=== PATIENT | male | born 1980 | race Two or more races ===

== ENCOUNTER 2021-11-02 09:33 | Emergency (ER) | payer SELFPAY ==
[~2021-11-02] VITALS: Ht 170.2 cm; Wt 82.0 kg
[2021-11-02] MEDS ORDERED: IV NORMAL SALINE 1000ML BAG 1,000 ML IV SCH (11:30)
[2021-11-02] MEDS ORDERED: ACETAMINOPHEN 500 MG TABLET PO ONE (11:30)
[2021-11-02 11:57] LABS: BASO % 0 % (0-3); EOS # 0.1 x10^3/uL (0.0-0.7); EOS % 2 % (0-3); HEMATOCRIT 43.2 % (39.0-53.0); HEMOGLOBIN 14.7 g/dL (13.0-17.5); LYMPH # 1.5 x10^3/uL (1.0-4.8); LYMPH % 29 % (24-48); MEAN CORPUSCULAR HEMOGLOBIN 29 pg (25-35); MEAN CORPUSCULAR HGB CONC 34 g/dL (31-37); MEAN CORPUSCULAR VOLUME 85 fL (79-100); MONO # 0.5 x10^3/uL (0.0-1.1); MONO % 10 % (0-9); NEUT % 58 % (31-73); PLATELET COUNT 124 x10^3/uL (140-400); RED CELL DISTRIBUTION WIDTH 13.1 % (11.5-14.5); WHITE BLOOD COUNT 5.1 x10^3/uL (4.0-11.0)
--- NOTE | 2021-11-02 12:04 | RAD ---
XR CHEST 1V History: Reason: soa, chest pain, cough / Spl. Instructions: / History: Comparison: None. Findings: No consolidation or pleural effusion. Normal heart size. No pneumothorax. Impression: 1. No acute cardiopulmonary process. Electronically signed by: Joey Luna DO (11/02/2021 12:02 PM) [id number]
[2021-11-02 12:07] LABS: CALCIUM 8.7 mg/dL (8.5-10.1); GFR 82.8; POTASSIUM 4.3 mmol/L (3.5-5.1)
[2021-11-02 12:14] LABS: MAGNESIUM 2.4 mg/dL (1.8-2.4); TOTAL BILIRUBIN 0.6 mg/dL (0.2-1.0); TOTAL PROTEIN 8.2 g/dL (6.4-8.2)
[2021-11-02] MEDS ORDERED: ALBU2.5V8 INH (12:36)
--- NOTE | 2021-11-02 12:38 | PHYS DOC ---
Past Medical History Past Surgical History: No Surgical History General Adult EDM: Chief Complaint: COUGH HPI: HPI: Patient is a 41 year old male who presents with 5 days of cough, shortness of breath with exertion, chest pain with movement and headache and nausea. He rates his overall pain a 6 out of 10. He is not vaccinated for Covid. He denies any past medical history and states he has not been taking any medications daily nor is he prescribed any medications daily. Review of Systems: Review of Systems: Constitutional: Denies fever or chills. [] Eyes: Denies change in visual acuity. [] HENT: Denies nasal congestion or sore throat. [] Respiratory: Denies cough or shortness of breath. [] Cardiovascular: Denies chest pain or edema. [] GI: Denies abdominal pain, nausea, vomiting, bloody stools or diarrhea. [] : Denies dysuria. [] Musculoskeletal: Denies back pain or joint pain. [] Integument: Denies rash. [] Neurologic: Denies headache, focal weakness or sensory changes. [] Endocrine: Denies polyuria or polydipsia. [] Lymphatic: Denies swollen glands. [] Psychiatric: Denies depression or anxiety. [] Heart Score: C/O Chest Pain: Yes HEART Score for Chest Pain: HEART Score for Chest Pain Response (Comments) Value History Slighlty/Non-Suspicious 0 ECG Normal 0 Age < 45 0 Risk Factors 1 or 2 Risk Factors 1 Troponin < Normal Limit 0 Total 1 Risk Factors: Risk Factors: DM, Current or recent (<one month) smoker, HTN, HLP, family history of CAD, obesity. Risk Scores: Score 0 - 3: 2.5% MACE over next 6 weeks - Discharge Home Score 4 - 6: 20.3% MACE over next 6 weeks - Admit for Clinical Observation Score 7 - 10: 72.7% MACE over next 6 weeks - Early Invasive Strategies Current Medications: Current Medications Medications (Trade) Dose Ordered Sig/Shari Start Time Stop Time Status Last Admin Dose Admin Acetaminophen (Tylenol) 1,000 mg 1X ONCE 11/02/21 11:30 11/02/21 11:50 DC 11/02/21 11:30 1,000 MG Sodium Chloride 1,000 ml @ 1,000 mls/hr Q1H 11/02/21 11:30 11/02/21 12:29 DC 11/02/21 11:30 1,000 MLS/HR Allergies: Allergies: Allergies Coded Allergies Type Severity Reaction Last Updated Verified No Known Drug Allergies 11/02/21 No Physical Exam: PE: Constitutional: Well developed, well nourished, no acute distress, non-toxic appearance. [] HENT: Normocephalic, atraumatic, bilateral external ears normal, oropharynx moist, no oral exudates, nose normal. [] Eyes: PERRLA, EOMI, conjunctiva normal, no discharge. [] Neck: Normal range of motion, no tenderness, supple, no stridor. [] Cardiovascular:Heart rate regular rhythm, no murmur [] Lungs & Thorax: Bilateral breath sounds clear to auscultation [] Abdomen: Bowel sounds normal, soft, no tenderness, no masses, no pulsatile masses. [] Skin: Warm, dry, no erythema, no rash. [] Back: No tenderness, no CVA tenderness. [] Extremities: No tenderness, no cyanosis, no clubbing, ROM intact, no edema. [] Neurologic: Alert and oriented X 3, normal motor function, normal sensory function, no focal deficits noted. [] Psychologic: Affect normal, judgement normal, mood normal. [] Current Patient Data: Labs: Laboratory Tests Test 11/02/21 11:43 White Blood Count 5.1 x10^3/uL (4.0-11.0) Red Blood Count 5.10 x10^6/uL (4.30-5.70) Hemoglobin 14.7 g/dL (13.0-17.5) Hematocrit 43.2 % (39.0-53.0) Mean Corpuscular Volume 85 fL (79-100) Mean Corpuscular Hemoglobin 29 pg (25-35) Mean Corpuscular Hemoglobin Concent 34 g/dL (31-37) Red Cell Distribution Width 13.1 % (11.5-14.5) Platelet Count 124 x10^3/uL (140-400) L Neutrophils (%) (Auto) 58 % (31-73) Lymphocytes (%) (Auto) 29 % (24-48) Monocytes (%) (Auto) 10 % (0-9) H Eosinophils (%) (Auto) 2 % (0-3) Basophils (%) (Auto) 0 % (0-3) Neutrophils # (Auto) 3.0 x10^3/uL (1.8-7.7) Lymphocytes # (Auto) 1.5 x10^3/uL (1.0-4.8) Monocytes # (Auto) 0.5 x10^3/uL (0.0-1.1) Eosinophils # (Auto) 0.1 x10^3/uL (0.0-0.7) Basophils # (Auto) 0.0 x10^3/uL (0.0-0.2) Sodium Level 142 mmol/L (136-145) Potassium Level 4.3 mmol/L (3.5-5.1) Chloride Level 104 mmol/L (98-107) Carbon Dioxide Level 25 mmol/L (21-32) Anion Gap 13 (6-14) Blood Urea Nitrogen 15 mg/dL (8-26) Creatinine 1.0 mg/dL (0.7-1.3) Estimated GFR (Cockcroft-Gault) 82.8 BUN/Creatinine Ratio 15 (6-20) Glucose Level 95 mg/dL (70-99) Calcium Level 8.7 mg/dL (8.5-10.1) Magnesium Level 2.4 mg/dL (1.8-2.4) Total Bilirubin 0.6 mg/dL (0.2-1.0) Aspartate Amino Transferase (AST) 32 U/L (15-37) Alanine Aminotransferase (ALT) 45 U/L (16-63) Alkaline Phosphatase 66 U/L (46-116) Troponin I High Sensitivity 31 ng/L (4-75) CB-Eec-J-Type Natriuretic Peptide 8 pg/mL (0-124) Total Protein 8.2 g/dL (6.4-8.2) Albumin 4.0 g/dL (3.4-5.0) Albumin/Globulin Ratio 1.0 (1.0-1.7) Lipase 124 U/L (73-393) SARS-CoV-2 Antigen (Rapid) Positive (NEGATIVE) *A Laboratory Tests 11/02/21 11:43 Laboratory Tests 11/02/21 11:43 Vital Signs: Vital Signs Date Time Temp Pulse Resp B/P (MAP) Pulse Ox O2 Delivery O2 Flow Rate FiO2 11/02/21 11:45 98.4 71 15 134/87 (103) 100 Room Air 98.4 EKG: EK and read by Dr. Marcus is sinus rhythm and no STEMI Radiology/Procedures: Radiology/Procedures: [] Impression: [facility] [address] [place] [address] IMAGING REPORT Signed PATIENT: ANAND COLLAZOACCOUNT: [id number] : 1980 LOCATION: ER AGE: 41 SEX: M EXAM STATUS: REG ER ORD. PHYSICIAN: LAURIE SALTER APRN REASON: soa, chest pain, cough PROCEDURE: PORTABLE CHEST 1V XR CHEST 1V History: Reason: soa, chest pain, cough / Spl. Instructions: / History: Comparison: None. Findings: No consolidation or pleural effusion. Normal heart size. No pneumothorax. Impression: 1. No acute cardiopulmonary process. Electronically signed by: Joey Luna DO (11/02/2021 12:02 PM) [id number] DICTATED and SIGNED BY: JOEY LUNA DO DATE: 11/02/21 [id number] 0 Course & Med Decision Making: Course & Med Decision Making Pertinent Labs and Imaging studies reviewed. (See chart for details) COVID-19 CRITERIA: The patient was evaluated during the global COVID-19 pandemic, and that diagnosis was suspected/considered upon their initial presentation. Their evaluation, treatment and testing was consistent with current guidelines for patients who present with complaints or symptoms that may be related to COVID-19. See HPI. Alert and oriented x4. Ambulatory steady gait. Skin pink warm and dry. Vital signs are within normal limits. Abdomen soft and nontender. Lungs are clear in upper lobes but diminished in lower lobes. Blood work unremarkable. Patient is satting 100% on room air. Patient is Covid positive. Chest x-ray shows no infection. 2 troponins are negative. Patient is stable and discharged home. [] Dragon Disclaimer: Dragon Disclaimer: This electronic medical record was generated, in whole or in part, using a voice recognition dictation system. COVID-19 Patient Risks: Age 65 or older: No Sign of co-morbidity: Yes Exp to person + for COVID: Yes Exp to PUI: Yes Travel from affected area: No Lower respiratory symptoms: Yes Fever: Yes Other: No PPE Use: Full PPE with N95 mask or PAPR: Yes Departure Departure Impression: Primary Impression: COVID-19 Disposition: HOME / SELF CARE / HOMELESS Condition: STABLE Referrals: NO PCP (PCP) Patient Instructions: Cough, Adult, Fever, Adult Additional Instructions: Follow-up with your primary care provider. Go to a [facility] or [facility] pharmacy and buy a finger oxygen probe and make sure that your oxygenation stays above 90%. If you begin having severe shortness of breath, chest pain or cannot keep down fluids return to the emergency room. Definicin Se le realiz la prueba de deteccin del COVID-19 o se le diagnostic dicha enfermedad. Es wilfred infeccin ocasionada por un nuevo tipo de coronavirus. En la mayora de los casos, el COVID-19 provoca sntomas similares a los del resfriado. En algunas personas, puede ocasionar sntomas ms graves, tigre problemas respiratorios. No existe un tratamiento para el virus COVID-19. El cuerpo elimina la infeccin con el tiempo. El cuidado personal ayuda a aliviar el malestar. Pasos que debe seguir 1. Cuidados personales Descanse cuando sea necesario. Los hbitos saludables pueden ayudarlo a sentirse mejor. Algunas medidas para lograr cambios incluyen lo siguiente: - Elija alimentos saludables, tigre frutas y verduras. Alma abundante cantidad de agua jerel todo el da. - Duerma rose por la noche. - Si fuma, intente no hacerlo. [place] ayudar a mejorar la respiracin. - Evite el alcohol. 2. Mantenga sanos a los dems El virus puede contagiarse a otras personas. Cada vez que estornuda o tose, se liberan gotitas. Las gotitas pueden entrar en la boca, la nariz o los ojos de las personas que se encuentran cerca de usted y ocasionar la infeccin. Para reducir las probabilidades de contagiar el virus COVID-19 a otros, tenga en cuenta lo siguiente: - Qudese en casa el tiempo que el mdico se lo indique. Es posible que deba quedarse en casa hasta que la enfermedad desaparezca. Salga nicamente para recibir atencin mdica o en farrah de urgencia. - Evite las reas pblicas, los eventos o el transporte pblico. No reanude las actividades laborales o escolares hasta que el mdico lo autorice. - Llame previamente si necesita asistir a un centro mdico. Avise que es posible que haya contrado COVID-19. [place] ayudar a que le indiquen adonde debe dirigirse. David pueden pedirle que use wilfred mscara facial cuando vaya al consultorio. Si llama a los servicios de asistencia mdica de urgencias, avseles que es posible que haya contrado COVID-19. Mientras est en casa: - Evite el contacto directo con otras personas. Mantngase a wilfred distancia aproximada de 2 metros. Si es posible, pasen la mayor parte del tiempo en hallman separadas. - Use wilfred mscara facial si estar en contacto directo con otras personas, por ejemplo, si compartir wilfred habitacin o un vehculo. - Pida a alguien que limpie las superficies comunes de la casa. Limpie picaportes, mesadas y lavamanos con limpiadores domsticos todos los noriega. - Al toser o estornudar, cbrase con un pauelo de papel. Despus de usarlo, deschelo de inmediato. Si no tiene un pauelo de papel, tosa o estornude en el pliegue del codo. - Lvese las lia con frecuencia. Lvese las lia despus de estornudar o toser. Lvese con agua y jabn jerel, al menos, 20 segundos. Si no dispone de agua y jabn, use un limpiador de lia a base de alcohol. - No cocine para otros. Evite compartir objetos personales, tigre tenedores, cucharas o cepillos de dientes. - Mientras est enfermo, evite el contacto directo con las mascotas. No hay indicios de si el virus se transmite a las mascotas. Esta es wilfred medida de seguridad que debe tenerse en cuenta hasta que se sepa ms acerca de sheba virus. El aislamiento puede ser frustrante. La interaccin social puede ayudar. Mantngase en contacto con amigos y familiares por telfono u otros medios tecnolgicos. Puede interactuar con otras personas en el hogar, dread mantenga wilfred distancia cantu de aproximadamente 2 metros. Seguimiento Las pruebas para confirmar la presencia del COVID-19 pueden demorar algunos noriega. Es posible que deba seguir los pasos mencionados anteriormente hasta que estn los resultados de las pruebas. Lo llamarn del consultorio mdico para saber si govea habido algn cambio en henry nohemi. [place] le avisarn cuando pueda volver a estar cerca de otras personas. Problemas a los que debe estar atento Comunquese con el mdico si no se recupera segn lo previsto o si tiene problemas tigre los siguientes: - Dificultad para respirar - Dolor de pecho - Empeoramiento de los sntomas Si niki que tiene wilfred urgencia, llame a los servicios de asistencia mdica de u rgencias de inmediato. As taken from [facility] Albuterol Sulfate (PROAIR HFA INHALER) 8.5 Gm Hfa.aer.ad 1-2 PUFF INH PRN Q6HRS PRN for SHORTNESS OF BREATH, #1 EACH 0 Refills Prov: LAURIE SALTER GROUNDS MANAGER 11/02/21 LAURIE SALTER GROUNDS MANAGER Nov 02, 2021 12:38
[2021-11-02 15:47] VITALS: BP 133/75
--- NOTE | 2021-11-03 04:36 | EKG ---
[facility] [address] [place] [address] Test Date: 2021-11-02 Test Time: 12:21:31 Pat Name: ANAND COLLAZO Department: Room: Gender: M Senior Planner: : 1980 Requested By: LAURIE SALTER Order Number: [id number] Reading MD: Kodi Reardon MD Measurements Intervals [place] Rate: 70 P: 33 OR: 196 QRS: 17 QRSD: 92 T: 43 QT: 368 QTc: 400 Interpretive Statements SINUS RHYTHM Electronically Signed On 11-04-2021 20:46:23 NURSE ADVISOR by Kodi Reardon MD
--- NOTE | 2021-11-06 23:03 | EKG ---
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
== END 2021-11-02 15:48 | disposition home or self-care (01) ==
LOC: ER 09:33
DX: U07.1 COVID-19 (principal)
CPT/HCPCS: 36415; 71045; 80053; 83690; 83735; 83880; 84484; 85025; 87426; 93005; 96360; 96361; 99285; J7030

== ENCOUNTER 2021-11-05 12:29 | Emergency (ER) | payer SELFPAY ==
[~2021-11-05 12:29] MED LIST: ALBU2.5V8 INH
[2021-11-06] MEDS ORDERED: BENZ200C47 PO (10:08)
[2021-11-06] MEDS ORDERED: ONDA4TAB7 PO (10:08)
== END 2021-11-05 13:00 | disposition left against medical advice (07) ==
LOC: ER 12:29
DX: U07.1 COVID-19 (principal); Z53.21 Procedure and treatment not carried out due to patient leaving prior to being seen by health care provider

== ENCOUNTER 2021-11-06 07:03 | Emergency (ER) | payer SELFPAY ==
[~2021-11-06] VITALS: Ht 172.7 cm; Wt 109.1 kg
--- NOTE | 2021-11-06 07:25 | PHYS DOC ---
Past Medical History Past Surgical History: No Surgical History General Adult EDM: Chief Complaint: SHORTNESS OF BREATH HPI: HPI: Patient is a 41 year old male who presents with shortness of breath. He reports chest pain with coughing. He reports having a continued dry cough. He was seen here 4 days ago was diagnosed with Covid. He has had symptoms total for about 6 days. He has not had a fever in the last 24 hours. He denies hemoptysis. He denies vomiting but does report nausea. Denies constipation or diarrhea. He denies abdominal pain. He reports slightly decreased urination. He reports having no appetite with loss of sense of taste and smell. He is trying to drink fluids. He reports diffuse body aches. He is not vaccinated against Covid. He reports that he did not get vaccinated because he did not feel like it. He denies recent travel history. He denies recent surgeries or hospitalization. His room air oxygen saturation is 100% here today. Review of Systems: Review of Systems: Constitutional: Reports chills and myalgias and fatigue. Denies objective fever. Eyes: Denies change in visual acuity. [] HENT: Reports nasal congestion. Denies sore throat. Respiratory: Reports cough or shortness of breath. Denies hemoptysis or sputum production Cardiovascular: Reports chest pain with coughing. No edema. No syncope. GI: Denies abdominal pain. Reports nausea without vomiting. Denies bowel habit changes. : Denies dysuria. [] Musculoskeletal: Orts diffuse myalgias and diffuse back pain. No joint pain, redness or swelling. Integument: Denies rash. [] Neurologic: Reports mild headache. Denies focal weakness or numbness or tingling. Denies syncope, dizziness, vertigo symptoms. Endocrine: Denies polyuria or polydipsia. [] Lymphatic: Denies swollen glands. [] Psychiatric: Denies depression or anxiety. [] Heart Score: C/O Chest Pain: Yes HEART Score for Chest Pain: HEART Score for Chest Pain Response (Comments) Value History Slighlty/Non-Suspicious 0 ECG Nonspecific Repolarizatio 1 Age < 45 0 Risk Factors No Risk Factors 0 Troponin < Normal Limit 0 Total 1 Risk Factors: Risk Factors: DM, Current or recent (<one month) smoker, HTN, HLP, family history of CAD, obesity. Risk Scores: Score 0 - 3: 2.5% MACE over next 6 weeks - Discharge Home Score 4 - 6: 20.3% MACE over next 6 weeks - Admit for Clinical Observation Score 7 - 10: 72.7% MACE over next 6 weeks - Early Invasive Strategies Allergies: Allergies: Allergies Coded Allergies Type Severity Reaction Last Updated Verified No Known Drug Allergies 11/02/21 No Physical Exam: PE: Constitutional: Well developed, well nourished, no acute distress, non-toxic appearance. [] HENT: Normocephalic, atraumatic, oropharynx is patent and clear, mucous membranes are slightly tacky. No exudate or erythema of the oropharynx or oral cavity. Eyes: Clear are clear, anicteric, conjunctive are unremarkable Neck: Normal range of motion, no tenderness, supple, no stridor. Trachea midline. No meningismus. Cardiovascular:Heart rate regular rhythm, no murmur, +2 radial and posterior tibial pulses bilaterally. Lungs & Thorax: Lungs are clear to auscultation bilaterally without, rales, rhonchi or wheezes. No stridor. No tachypnea. Equal chest rise. Speaks in full and clear sentences, no evidence of distress. Abdomen: Soft, nondistended, nontender to palpation. No palpable mass organomegaly. Skin: Warm, dry, no erythema, no rash. [] Back: No tenderness, no CVA tenderness. [] Extremities: No tenderness, no cyanosis, no clubbing, ROM intact, no edema. Calf tenderness. Neurologic: Alert and oriented X 3, normal motor function, normal sensory function, no focal deficits noted. [] Psychologic: He is slightly anxious, but he is cooperative. [] EKG: EKG: EKG is interpreted at 0817 Rhythm is sinus Rate is 87 bpm [place] is left No STEMI Radiology/Procedures: Radiology/Procedures: IMAGING REPORT Signed PATIENT: ANAND COLLAZOACCOUNT: [id number] : 1980 LOCATION: ER AGE: 41 SEX: M EXAM STATUS: REG ER ORD. PHYSICIAN: YADI HARRISON DO REASON: cough, dyspnea PROCEDURE: PORTABLE CHEST 1V XR CHEST 1V INDICATION: cough, dyspnea . COMPARISON STUDY: 11/02/2021. FINDINGS: Lungs: Low lung volume. Mild bibasilar heterogeneous opacities. The tracheobronchial tree and hilar structures are normal. Pleura: No pleural effusion or pneumothorax. Heart and Mediastinum: The cardiomediastinal silhouette is normal. The great ve ssels of the thorax are normal. Bones and Soft Tissues: The bones and soft tissues are within normal limits. IMPRESSION: Low lung volume with mild bibasilar opacities, which could represent subsegmental atelectasis or potentially an infectious/inflammatory process. Electronically signed by: Cici Garcia MD (11/06/2021 7:54 AM) [id number] DICTATED and SIGNED BY: CICI GARCIA MD DATE: 11/06/21 [id number] 0 Course & Med Decision Making: Course & Med Decision Making Pertinent Labs and Imaging studies reviewed. (See chart for details) I discussed the findings, differential diagnosis and plan of care with the patient. He is hemodynamically stable. Manifests no evidence of respiratory distress or hypoxia. Emergency department work-up is unremarkable for any acute life-threatening process. I discussed all of this with the patient. Explained that this is the expected progression of illness with Covid 19 infection. I told him to go home, continue self isolate, he may take [id number] Tylenol and ibuprofen for pain. He is to stay well-hydrated, drink plenty of clear fluids. He is to return for any worsening or life-threatening symptoms, I recommend he obtain a pulse oximeter, to monitor his oxygen saturation at home. No indication for admission at this time. Return precautions are given. He verbalized understanding. [place]aritza Disclaimer: Yaritza Disclaimer: This electronic medical record was generated, in whole or in part, using a voice recognition dictation system. Departure Departure Impression: Primary Impression: Dyspnea Additional Impression: COVID-19 Disposition: 01 HOME / SELF CARE / HOMELESS Condition: STABLE Referrals: NO PCP (PCP) Additional Instructions: Definicin Se le realiz la prueba de deteccin del COVID-19 o se le diagnostic dicha enfermedad. Es wilfred infeccin ocasionada por un nuevo tipo de coronavirus. En la mayora de los casos, el COVID-19 provoca sntomas similares a los del resfriado. En algunas personas, puede ocasionar sntomas ms graves, tigre problemas respiratorios. No existe un tratamiento para el virus COVID-19. El cuerpo elimina la infeccin con el tiempo. El cuidado personal ayuda a aliviar el malestar. Pasos que debe seguir 1. Cuidados personales Descanse cuando sea necesario. Los hbitos saludables pueden ayudarlo a sentirse mejor. Algunas medidas para lograr cambios incluyen lo siguiente: - Elija alimentos saludables, tigre frutas y verduras. Alma abundante cantidad de agua jerel todo el da. - Duerma rose por la noche. - Si fuma, intente no hacerlo. [place] ayudar a mejorar la respiracin. - Evite el alcohol. 2. Mantenga sanos a los dems El virus puede contagiarse a otras personas. Cada vez que estornuda o tose, se liberan gotitas. Las gotitas pueden entrar en la boca, la nariz o los ojos de las personas que se encuentran cerca de usted y ocasionar la infeccin. Para reducir las probabi lidades de contagiar el virus COVID-19 a otros, tenga en cuenta lo siguiente: - Qudese en casa el tiempo que el mdico se lo indique. Es posible que deba quedarse en casa hasta que la enfermedad desaparezca. Salga nicamente para recibir atencin mdica o en farrah de urgencia. - Evite las reas pblicas, los eventos o el transporte pblico. No reanude las actividades laborales o escolares hasta que el mdico lo autorice. - Llame previamente si necesita asistir a un centro mdico. Avise que es posibl e que haya contrado COVID-19. [place] ayudar a que le indiquen adonde debe dirigirse. David pueden pedirle que use wilfred mscara facial cuando vaya al consultorio. Si llama a los servicios de asistencia mdica de urgencias, avseles que es posible que haya contrado COVID-19. Mientras est en casa: - Evite el contacto directo con otras personas. Mantngase a wilfred distancia apr oximada de 2 metros. Si es posible, pasen la mayor parte del tiempo en hallman separadas. - Use wilfred mscara facial si estar en contacto directo con otras personas, por ejemplo, si compartir wilfred habitacin o un vehculo. - Pida a alguien que limpie las superficies comunes de la casa. Limpie picaportes, mesadas y lavamanos con limpiadores domsticos todos los noriega. - Al toser o estornudar, cbrase con un pauelo de papel. Despus de usarlo, deschelo de inmediato. Si no tiene un pauelo de papel, tosa o estornude en el pliegue del codo. - Lvese las lia con frecuencia. Lvese las lia despus de estornudar o toser. Lvese con agua y jabn jerel, al menos, 20 segundos. Si no dispone de agua y jabn, use un limpiador de lia a base de alcohol. - No cocine para otros. Evite compartir objetos personales, tigre tenedores, cucharas o cepillos de dientes. - Mientras est enfermo, evite el contacto directo con las mascotas. No hay indicios de si el virus se transmite a las mascotas. Esta es wilfred medida de seguridad que debe tenerse en cuenta hasta que se sepa ms acerca de sheba virus. El aislamiento puede ser frustrante. La interaccin social puede ayudar. Mantngase en contacto con amigos y familiares por telfono u otros medios tecnolgicos. Puede interactuar con otras personas en el hogar, dread mantenga wilfred distancia cantu de aproximadamente 2 metros. Seguimiento Las pruebas para confirmar la presencia del COVID-19 pueden demorar algunos noriega. Es posible que deba seguir los pasos mencionados anteriormente hasta que estn los resultados de las pruebas. Lo llamarn del consultorio mdico para saber si govea habido algn cambio en henry nohemi. Tambin le avisarn cuando pueda volver a estar cerca de otras personas. Problemas a los que debe estar atento Comunquese con el mdico si no se recupera segn lo previsto o si tiene problemas tigre los siguientes: - Dificultad para respirar - Dolor de pecho - Empeoramiento de los sntomas Si niki que tiene wilfred urgencia, llame a los servicios de asistencia mdica de urgencias de inmediato. As taken from [facility] Benzonatate (BENZONATATE) 200 Mg Capsule 1 CAP PO PRN TID PRN for cough, #20 CAP 0 Refills Prov: CHRISTY,YADI M DO 11/06/21 Ondansetron Hcl (ZOFRAN) 4 Mg Tablet 4 MG PO PRN TID PRN for VOMITING, #20 TAB nausea/vomiting Prov: CHRISTY,YADI M DO 11/06/21 CHRISTY,YADI M DO Nov 06, 2021 07:25
[2021-11-06] MEDS ORDERED: IV NORMAL SALINE 1000ML BAG 1,000 ML IV ONE (07:45)
[2021-11-06] MEDS ORDERED: KETOROLAC 15 MG/ML VIAL. IVP ONE (07:45)
[2021-11-06] MEDS ORDERED: ONDANSETRON PF 4 MG/2 ML VIAL. IVP ONE (07:45)
--- NOTE | 2021-11-06 07:56 | RAD ---
XR CHEST 1V INDICATION: cough, dyspnea . COMPARISON STUDY: 11/02/2021. FINDINGS: Lungs: Low lung volume. Mild bibasilar heterogeneous opacities. The tracheobronchial tree and hilar s tructures are normal. Pleura: No pleural effusion or pneumothorax. Heart and Mediastinum: The cardiomediastinal silhouette is normal. The great vessels of the thorax ar e normal. Bones and Soft Tissues: The bones and soft tissues are within normal limits. IMPRESSION: Low lung volume with mild bibasilar opacities, which could represent subsegmental atelectasis or pote ntially an infectious/inflammatory process. Electronically signed by: Shay Garcia MD (11/06/2021 7:54 AM) [id number]
[2021-11-06 08:00] LABS: BILIRUBIN,URINE NEGATIVE (NEG); CLARITY,URINE CLEAR; COLOR,URINE YELLOW; NITRITE,URINE NEGATIVE (NEG); PH,URINE 7.5 (<5.0-8.0); PROTEIN,URINE NEGATIVE (NEG-TRACE)
[2021-11-06 08:13] LABS: BACTERIA,URINE 0 /HPF (0-FEW); RBC,URINE 0 /HPF (0-2); WBC,URINE 0 /HPF (0-4)
[2021-11-06 08:44] LABS: BASO % 0 % (0-3); EOS % 0 % (0-3); HEMATOCRIT 42.6 % (39.0-53.0); HEMOGLOBIN 14.6 g/dL (13.0-17.5); LYMPH # 0.8 x10^3/uL (1.0-4.8); LYMPH % 13 % (24-48); MEAN CORPUSCULAR HEMOGLOBIN 29 pg (25-35); MEAN CORPUSCULAR HGB CONC 34 g/dL (31-37); MEAN CORPUSCULAR VOLUME 84 fL (79-100); MONO # 0.5 x10^3/uL (0.0-1.1); MONO % 8 % (0-9); NEUT # 4.8 x10^3/uL (1.8-7.7); NEUT % 79 % (31-73); PLATELET COUNT 95 x10^3/uL (140-400); RED CELL DISTRIBUTION WIDTH 13.2 % (11.5-14.5)
[2021-11-06 08:50] LABS: CALCIUM 8.8 mg/dL (8.5-10.1); GFR 82.8; POTASSIUM 3.6 mmol/L (3.5-5.1)
[2021-11-06 08:57] LABS: ALBUMIN 3.8 g/dL (3.4-5.0); ALBUMIN/GLOBULIN RATIO 0.9 (1.0-1.7); TOTAL BILIRUBIN 0.5 mg/dL (0.2-1.0)
[2021-11-06] MEDS ORDERED: ONDA4TAB7 PO (10:08)
[2021-11-06] MEDS ORDERED: BENZ200C47 PO (10:08)
[2021-11-06 10:24] VITALS: BP 138/89
--- NOTE | 2021-11-08 09:25 | EKG ---
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
[2021-11-09] MEDS ORDERED: BENZ200C47 PO (12:27)
[2021-11-09] MEDS ORDERED: LORA-434 PO (12:27)
== END 2021-11-06 10:26 | disposition home or self-care (01) ==
LOC: ER 07:03
DX: U07.1 COVID-19 (principal); R06.02 Shortness of breath
CPT/HCPCS: 36415; 71045; 80053; 81001; 82550; 83880; 84484; 85025; 85379; 93005; 96361; 96374; 96375; 99285; J1885; J2405; J7030

== ENCOUNTER 2021-11-08 11:40 | Inpatient (IN) | payer SELFPAY ==
[~2021-11-08] VITALS: Ht 172.7 cm; Wt 103.0 kg
[~2021-11-08 11:40] MED LIST changes: +BENZ200C47 PO; +ONDA4TAB7 PO
[2021-11-08] MEDS ORDERED: ASPIRIN CHEWABLE 81 MG TABLET. PO ONE (12:45)
--- NOTE | 2021-11-08 13:00 | EKG ---
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
--- NOTE | 2021-11-08 13:02 | EKG ---
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
[2021-11-08 13:12] LABS: BASO % 0 % (0-3); EOS % 0 % (0-3); HEMATOCRIT 42.9 % (39.0-53.0); LYMPH # 1.4 x10^3/uL (1.0-4.8); LYMPH % 15 % (24-48); MEAN CORPUSCULAR HEMOGLOBIN 29 pg (25-35); MEAN CORPUSCULAR HGB CONC 35 g/dL (31-37); MEAN CORPUSCULAR VOLUME 82 fL (79-100); MONO # 0.7 x10^3/uL (0.0-1.1); MONO % 7 % (0-9); NEUT # 7.1 x10^3/uL (1.8-7.7); NEUT % 77 % (31-73); PLATELET COUNT 122 x10^3/uL (140-400); RED BLOOD COUNT 5.23 x10^6/uL (4.30-5.70); RED CELL DISTRIBUTION WIDTH 13.3 % (11.5-14.5); WHITE BLOOD COUNT 9.2 x10^3/uL (4.0-11.0)
[2021-11-08] MEDS ORDERED: CONTRAST GIVEN. MC PRN (13:15)
[2021-11-08] MEDS ORDERED: IOHEXOL 350 MG/ML 100 ML VIAL. IV ONE (13:15)
[2021-11-08 13:19] LABS: CALCIUM 9.1 mg/dL (8.5-10.1); CREATININE 1.1 mg/dL (0.7-1.3); GFR 74.1; POTASSIUM 4.1 mmol/L (3.5-5.1)
[2021-11-08 13:29] LABS: BASE EXCESS ABG -3 mmol/L (-3-3); HCO3 ABG 15 mmol/L (21-28); PO2 ABG 101 mmHg (75-108); SAT O2 ABG 98 % (92-99)
[2021-11-08 13:37] LABS: ALBUMIN 3.9 g/dL (3.4-5.0); ALBUMIN/GLOBULIN RATIO 0.8 (1.0-1.7); TOTAL PROTEIN 8.5 g/dL (6.4-8.2)
--- NOTE | 2021-11-08 13:51 | RAD ---
Examination: CT angiographic chest with IV contrast HISTORY: History of shortness of breath, tachycardia, Covid positive COMPARISON: None available Technique: Axial CT angiographic images of chest were performed with IV contrast. Coronal and sagitta l 3-D MIP reformats are performed Exposure: One or more of the following individualized dose reduction techniques were utilized for thi s examination: 1. Automated exposure control 2. Adjustment of the mA and/or kV according to patient size 3. Use of iterative reconstruction technique FINDINGS: The central airways are patent. The heart size grossly appears unremarkable. The caliber of the aorta grossly appears unremarkable. Examination is somewhat limited due to minimal contrast within the pul monary artery and its branches however grossly no evidence of large filling defect identified in the main pulmonary arteries the visualized right and left main pulmonary arteries. The evaluation of dist al branches of pulmonary arteries is limited. There are faint multiple patchy scattered groundglass a irspace opacities identified in the bilateral lungs. Diffuse decreased attenuation noted in the liver likely steatosis. The spleen, adrenals grossly appears unremarkable Mild degenerative changes thoracic spine IMPRESSION: 1. No evidence of large filling defect identified in the main pulmonary arteries the visualized righ t and left main pulmonary arteries. The evaluation of pulmonary arteries is however limited due to mi nimal contrast within the pulmonary arteries. 2. Faint multiple patchy scattered groundglass airspace opacities identified in the bilateral lungs likely viral or covid pneumonia. Follow-up to resolution. 3. Hepatic steatosis. Electronically signed by: Viral Mejia MD (11/08/2021 1:49 PM) [id number]
[2021-11-08 13:56] LABS: FIO2 ABG RA; PCO2 ABG < 15 mmHg (35-46)
--- NOTE | 2021-11-08 14:25 | PHYS DOC ---
Past Medical History Past Surgical History: No Surgical History Smoking Status: Current Some Day Smoker Alcohol Use: None General Adult EDM: Chief Complaint: SHORTNESS OF BREATH HPI: HPI: Patient is a 41 year old Indonesian speaking male who presents with known COVID-19 diagnosis and 3-day history of chest pain. Patient rates his pain 10/10, nonradiating and unchanged since onset. He reports associated shortness of breath, nausea, diarrhea and anxiety. Patient states he was diagnosed with Covid 9 days ago. He was originally prescribed an inhaler, but has since used it. Patient reports he has taken aspirin once per day daily for the past week. He is unsure of the dosage. He denies palpitations, sputum production, abdominal pain, constipation. Review of Systems: Review of Systems: Constitutional: Denies fever or chills. Eyes: Denies change in visual acuity. HENT: Denies nasal congestion or sore throat. Respiratory: See HPI Cardiovascular: See HPI GI: See HPI : Denies dysuria or hematuria. Musculoskeletal: Denies back pain or joint pain. Integument: Denies rash or other skin lesions. Neurologic: Denies headache, focal weakness or sensory changes. Psychiatric: See HPI Heart Score: C/O Chest Pain: No Current Medications: Current Medications Medications (Trade) Dose Ordered Sig/Shari Start Time Stop Time Status Last Admin Dose Admin Aspirin (Aspirin Chewable) 324 mg 1X ONCE 11/08/21 12:45 11/08/21 12:50 DC 11/08/21 12:45 324 MG Info (CONTRAST GIVEN -- Rx MONITORING) 1 each PRN DAILY PRN 11/08/21 13:15 11/10/21 13:14 Iohexol (Omnipaque 350 Mg/ml) 100 ml 1X ONCE 11/08/21 13:15 11/08/21 13:16 DC Lorazepam (Ativan Inj) 1 mg 1X ONCE 11/08/21 13:00 11/08/21 13:02 DC 11/08/21 13:24 1 MG Allergies: Allergies: Allergies Coded Allergies Type Severity Reaction Last Updated Verified No Known Drug Allergies 11/08/21 No Physical Exam: PE: Constitutional: Obese, extremely anxious appearing, rapid and shallow breathing. HENT: Normocephalic, atraumatic, bilateral external ears normal, oropharynx moist, no oral exudates, nose without obvious deformity or discharge. Eyes: PERRLA, EOMI, conjunctiva normal, no discharge. Neck: Normal range of motion, no tenderness, supple, no stridor. Cardiovascular: Heart rate regular rhythm, no murmur. Lungs & Thorax: Thoracic expansion is minimal secondary to shallow and rapid breath pattern. Bilateral breath sounds clear to auscultation slightly diminished in posterior bases bilaterally. Abdomen: Bowel sounds normal, soft, no tenderness, no masses, no pulsatile masses. Skin: Warm, no erythema, no rash. Extremities: No tenderness, no cyanosis, no clubbing, ROM intact, no edema. Neurologic: Alert and oriented x4, no focal deficits noted. Psychologic: Affect anxious, fair judgment. Current Patient Data: Labs: Laboratory Tests Test 11/08/21 12:40 11/08/21 12:43 11/08/21 13:23 White Blood Count 9.2 x10^3/uL (4.0-11.0) Red Blood Count 5.23 x10^6/uL (4.30-5.70) Hemoglobin 15.0 g/dL (13.0-17.5) Hematocrit 42.9 % (39.0-53.0) Mean Corpuscular Volume 82 fL (79-100) Mean Corpuscular Hemoglobin 29 pg (25-35) Mean Corpuscular Hemoglobin Concent 35 g/dL (31-37) Red Cell Distribution Width 13.3 % (11.5-14.5) Platelet Count 122 x10^3/uL (140-400) L Neutrophils (%) (Auto) 77 % (31-73) H Lymphocytes (%) (Auto) 15 % (24-48) L Monocytes (%) (Auto) 7 % (0-9) Eosinophils (%) (Auto) 0 % (0-3) Basophils (%) (Auto) 0 % (0-3) Neutrophils # (Auto) 7.1 x10^3/uL (1.8-7.7) Lymphocytes # (Auto) 1.4 x10^3/uL (1.0-4.8) Monocytes # (Auto) 0.7 x10^3/uL (0.0-1.1) Eosinophils # (Auto) 0.0 x10^3/uL (0.0-0.7) Basophils # (Auto) 0.0 x10^3/uL (0.0-0.2) Sodium Level 140 mmol/L (136-145) Potassium Level 4.1 mmol/L (3.5-5.1) Chloride Level 105 mmol/L (98-107) Carbon Dioxide Level 19 mmol/L (21-32) L Anion Gap 16 (6-14) H Blood Urea Nitrogen 11 mg/dL (8-26) Creatinine 1.1 mg/dL (0.7-1.3) Estimated GFR (Cockcroft-Gault) 74.1 BUN/Creatinine Ratio 10 (6-20) Glucose Level 90 mg/dL (70-99) Calcium Level 9.1 mg/dL (8.5-10.1) Total Bilirubin 1.0 mg/dL (0.2-1.0) Aspartate Amino Transferase (AST) 22 U/L (15-37) Alanine Aminotransferase (ALT) 33 U/L (16-63) Alkaline Phosphatase 72 U/L (46-116) Troponin I High Sensitivity 23 ng/L (4-75) KZ-Wsv-H-Type Natriuretic Peptide 17 pg/mL (0-124) Total Protein 8.5 g/dL (6.4-8.2) H Albumin 3.9 g/dL (3.4-5.0) Albumin/Globulin Ratio 0.8 (1.0-1.7) L Lipase 154 U/L (73-393) O2 Saturation 98 % (92-99) Arterial Blood pH 7.62 (7.35-7.45) *H Arterial Blood pCO2 at Patient Temp < 15 mmHg (35-46) *L Arterial Blood pO2 at Patient Temp 101 mmHg (75-108) Arterial Blood HCO3 15 mmol/L (21-28) L Arterial Blood Base Excess -3 mmol/L (-3-3) FiO2 Ra Glucose (Fingerstick) 82 mg/dL (70-99) Laboratory Tests 11/08/21 12:40 Laboratory Tests 11/08/21 12:40 Vital Signs: Vital Signs Date Time Temp Pulse Resp B/P (MAP) Pulse Ox O2 Delivery O2 Flow Rate FiO2 11/08/21 15:11 56 15 127/87 (100) 98 Room Air 11/08/21 13:28 98 Room Air 11/08/21 13:14 103 15 165/80 (108) 97 Room Air 11/08/21 11:45 98.1 96 38 128/89 (102) 100 Room Air 98.1 EKG: EKG: EKG Interpreted by Dr. Alford at 1255: Regular rate and rhythm 89 bpm with no ectopic beats. No concerning ST-T wave changes. QT 342 ms/QTc 417 ms. Radiology/Procedures: Radiology/Procedures: PROCEDURE: CT ANGIOGRAPHY CHEST Examination: CT angiographic chest with IV contrast HISTORY: History of shortness of breath, tachycardia, Covid positive COMPARISON: None available Technique: Axial CT angiographic images of chest were performed with IV contrast. Coronal and sagittal 3-D MIP reformats are performed Exposure: One or more of the following individualized dose reduction techniques were utilized for this examination: 1. Automated exposure control 2. Adjustment of the mA and/or kV according to patient size 3. Use of iterative reconstruction technique FINDINGS: The central airways are patent. The heart size grossly appears unremarkable. The caliber of the aorta grossly appears unremarkable. Examination is somewhat limited due to minimal contrast within the pulmonary artery and its branches however grossly no evidence of large filling defect identified in the main pulmonary arteries the visualized right and left main pulmonary arteries. The evaluation of distal branches of pulmonary arteries is limited. There are faint multiple patchy scattered groundglass airspace opacities identified in the bilateral lungs. Diffuse decreased attenuation noted in the liver likely steatosis. The spleen, adrenals grossly appears unremarkable Mild degenerative changes thoracic spine IMPRESSION: 1. No evidence of large filling defect identified in the main pulmonary arteries the visualized right and left main pulmonary arteries. The evaluation of pulmonary arteries is however limited due to minimal contrast within the pulmonary arteries. 2. Faint multiple patchy scattered groundglass airspace opacities identified in the bilateral lungs likely viral or covid pneumonia. Follow-up to resolution. 3. Hepatic steatosis. Electronically signed by: Viral Mejia MD (11/08/2021 1:49 PM) [id number] Course & Med Decision Making: Course & Med Decision Making Pertinent Labs and Imaging studies reviewed. (See chart for details) Patient is extremely anxious appearing and obviously tachypneic on exam. Work- up today will include EKG, serial troponin, CT angio chest, lab work, ABG. Patient is ABG consistent with partially compensated respiratory alkalosis that is very concerning. Discussed admission with hospitalist, Dr. Moran, who advises reevaluation of tachypnea as well as salicylate levels. With 1 mg Ativan, patient appears to be more relaxed, however continues to have rapid breathing. Patient will be admitted for dyspnea associated with COVID-19 and respiratory alkalosis. Dragashtyn Disclaimer: Yaritza Disclaimer: This electronic medical record was generated, in whole or in part, using a voice recognition dictation system. Departure Departure Impression: Primary Impression: COVID-19 Additional Impressions: Dyspnea Qualified Codes: R06.09 - Other forms of dyspnea Respiratory alkalosis Disposition: ADMITTED INPATIENT Admitting Physician: SYLVAIN Flores) Condition: GUARDED Referrals: NO PCP (PCP) INDRA HERNANDEZ Nov 08, 2021 14:25
--- NOTE | 2021-11-08 16:03 | PDOC1 ---
History and Physical Date of Admission Date of Admission DATE: 11/08/21 TIME: 16:03 Identification/Chief Complaint Chief Complaint Shortness of breath Source Source: Patient History of Present Illness History of Present Illness Mr Sahni is a 41 year old Nauruan speaking only male with no PMHx who presents to ED with worsening shortness of breath and 3 days of chest discomfort. Pain 10/10 at the worst, but is dull nonradiating and worsening with cough, reproducible. He reports associated shortness of breath, nausea, diarrhea and anxiety. He has had shortness of breath and voluminous diarrhea multiple time per day for the past week. Tested positive for COVID-19 on 11/02/2021 comes in ED very tachypneic. Patient reports he has taken aspirin once per day daily for the past week. He is unsure of the dosage. He denies palpitations, sputum production, abdominal pain or recent travel ABG on room air 7.6 2/101, WBC 9.2, Hb 15, platelets 122, metabolic panel within normal limits, salicylates undetectable, CTPA negative for pulmonary embolism but not fully adequate study bilateral groundglass opacities bilateral lungs. Hepatic steatosis. EKG appears sinus rhythm rate of 89 bpm normal axis and intervals QTc 417 Despite Ativan and respiratory treatments still very tachypneic over 24 breaths per minute. No hypoxia noted Admitted for further care. Past Medical History Cardiovascular: No pertinent hx Past Surgical History Past Surgical History: No pertinent history Family History Family History: Diabetes, High Cholestrol, Hypertension Social History Smoke: 1 pack per day ALCOHOL: rare Drugs: None Current Medications Current Medications Current Medications Aspirin (Aspirin Chewable) 324 mg 1X ONCE PO Last administered on 11/08/21at 12:45; Start 11/08/21 at 12:45; Stop 11/08/21 at 12:50; Status DC Lorazepam (Ativan Inj) 1 mg 1X ONCE IVP Last administered on 11/08/21at 13:24; Start 11/08/21 at 13:00; Stop 11/08/21 at 13:02; Status DC Iohexol (Omnipaque 350 Mg/ml) 100 ml 1X ONCE IV ; Start 11/08/21 at 13:15; Stop 11/08/21 at 13:16; Status DC Info (CONTRAST GIVEN -- Rx MONITORING) 1 each PRN DAILY PRN MC SEE COMMENTS; Start 11/08/21 at 13:15; Stop 11/10/21 at 13:14 Active Scripts Active Benzonatate 200 Mg Capsule 1 Cap PO PRN TID PRN Zofran (Ondansetron Hcl) 4 Mg Tablet 4 Mg PO PRN TID PRN nausea/vomiting Proair Hfa Inhaler (Albuterol Sulfate) 8.5 Gm Hfa.aer.ad 1-2 Puff INH PRN Q6HRS PRN Allergies Allergies: Coded Allergies: No Known Drug Allergies (Unverified , 11/08/21) ROS General: YES: Chills, Fatigue, Malaise, Appetite; No: Night Sweats, Other PSYCHOLOGICAL ROS: YES: Anxiety; No: Behavioral Disorder, Concentration difficultie, Decreased libido, Depres cami, Disorientation, Hallucinations, Hostility, Irritablity, Memory difficulties, Mood Swings, Obsessive thoughts, Physical abuse, Sexual abuse, Sleep disturbances, Suicidal ideation, Other Eyes: No Blurry vision, No Decreased vision, No Double vision, No Dry eyes, No Excessive tearing, No Eye Pain, No Itchy Eyes, No Loss of vision, No Photophobia, No Scotomata, No Uses contacts, No Uses glasses, No Other HEENT: No: Heacaches, Visual Changes, Hearing change, Nasal congestion, Nasal discharge, Oral lesions, Sinus pain, Sore Throat, Epistaxis, Sneezing, Snoring, Tinnitus, Vertigo, Vocal changes, Other ALLERGY AND IMMUNOLOGY: No: Hives, Insect Bite Sensitivity, Itchy/Watery Eyes, Nasal Congestion, Post Nasal Drip, Seasonal Allergies, Other Hematological and Lymphatic: No: Bleeding Problems, Blood Clots, Blood Transfusions, Brusing, Night Sweats, Pallor, Swollen Lymph Nodes, Other ENDOCRINE: No: Breast Changes, Galactorrhea, Hair Pattern Changes, Hot Flashes, Malaise/lethargy, Mood Swings, Palpitations, Polydipsia/polyuria, Skin Changes, Temperature Intolerance, Unexpected Weight Changes, Other Breast: No New/Changing Breast Lumps, No Nipple changes, No Nipple discharge, No Other Respiratory: YES: Cough, Pleuritic Pain, Shortness of breath, SOB with excertion, Tachypnea; No: Hemoptysis, Orthopnea, Sputum Changes, Stridor, Wheezing, Other Cardiovascular: yes Chest Pain; No Palpitations, No Orthopnea, No Paroxysmal Noc. Dyspnea, No Edema, No Lt Headedness, No Other Gastrointestinal: Yes Nausea, Yes Diarrhea; No Vomiting, No Abdominal Pain, No Constipation, No Melena, No Hematochezia, No Other Genitourinary: No Dysuria, No Frequency, No Incontinence, No Hematuria, No Retention, No Discharge, No Urgency, No Pain, No Flank Pain, No Other, No , No , No , No , No , No , No Musculoskeletal: No Gait Disturbance, No Joint Pain, No Joint Stiffness, No Joint Swelling, No Muscle Pain, No Muscular Weakness, No Pain In:, No Swelling In:, No Other Neurological: No Behavorial Changes, No Bowel/Bladder ControlChng, No Confusion, No Dizziness, No Gait Disturbance, No Headaches, No Impaired Coord/balance, No Memory Loss, No Numbness/Tingling, No Seizures, No Speech Problems, No Tremors, No Visual Changes, No Weakness, No Other Skin: No Dry Skin, No Eczema, No Hair Changes, No Lumps, No Mole Changes, No Mottling, No Nail Changes, No Pruritus, No Rash, No Skin Lesion Changes, No Other, No Acne Physical Exam General: Alert, Oriented X3, Cooperative, moderate distress HEENT: Atraumatic, PERRLA, EOMI, Mucous membr. moist/pink Lungs: Clear to auscultation, Normal air movement Heart: S1S2, RRR, no thrills, no rubs, no gallops, no murmurs Abdomen: Normal bowel sounds, Soft, No tenderness, No hepatosplenomegaly, No masses Rectal Exam: not examined Extremities: No clubbing, No cyanosis, No edema, Normal pulses, No tenderness/swelling Skin: No rashes, No breakdown, No significant lesion Neuro: Normal gait, Normal speech, Strength at 5/5 X4 ext, Normal tone, Sensation intact, Cranial nerves 3-12 NL, Reflexes 2+ Psych/Mental Status: Mental status NL, Mood NL Vitals Vitals Vital Signs Date Time Temp Pulse Resp B/P (MAP) Pulse Ox O2 Delivery O2 Flow Rate FiO2 11/08/21 15:11 56 15 127/87 (100) 98 Room Air 11/08/21 11:45 98.1 98.1 Labs Labs Laboratory Tests Test 12/9/21 12:40 11/08/21 12:43 11/08/21 13:23 White Blood Count 9.2 x10^3/uL (4.0-11.0) Red Blood Count 5.23 x10^6/uL (4.30-5.70) Hemoglobin 15.0 g/dL (13.0-17.5) Hematocrit 42.9 % (39.0-53.0) Mean Corpuscular Volume 82 fL (79-100) Mean Corpuscular Hemoglobin 29 pg (25-35) Mean Corpuscular Hemoglobin Concent 35 g/dL (31-37) Red Cell Distribution Width 13.3 % (11.5-14.5) Platelet Count 122 x10^3/uL (140-400) Neutrophils (%) (Auto) 77 % (31-73) Lymphocytes (%) (Auto) 15 % (24-48) Monocytes (%) (Auto) 7 % (0-9) Eosinophils (%) (Auto) 0 % (0-3) Basophils (%) (Auto) 0 % (0-3) Neutrophils # (Auto) 7.1 x10^3/uL (1.8-7.7) Lymphocytes # (Auto) 1.4 x10^3/uL (1.0-4.8) Monocytes # (Auto) 0.7 x10^3/uL (0.0-1.1) Eosinophils # (Auto) 0.0 x10^3/uL (0.0-0.7) Basophils # (Auto) 0.0 x10^3/uL (0.0-0.2) Sodium Level 140 mmol/L (136-145) Potassium Level 4.1 mmol/L (3.5-5.1) Chloride Level 105 mmol/L (98-107) Carbon Dioxide Level 19 mmol/L (21-32) Anion Gap 16 (6-14) Blood Urea Nitrogen 11 mg/dL (8-26) Creatinine 1.1 mg/dL (0.7-1.3) Estimated GFR (Cockcroft-Gault) 74.1 BUN/Creatinine Ratio 10 (6-20) Glucose Level 90 mg/dL (70-99) Calcium Level 9.1 mg/dL (8.5-10.1) Total Bilirubin 1.0 mg/dL (0.2-1.0) Aspartate Amino Transf (AST/SGOT) 22 U/L (15-37) Alanine Aminotransferase (ALT/SGPT) 33 U/L (16-63) Alkaline Phosphatase 72 U/L (46-116) Troponin I High Sensitivity 23 ng/L (4-75) IA-Wji-T-Type Natriuretic Peptide 17 pg/mL (0-124) Total Protein 8.5 g/dL (6.4-8.2) Albumin 3.9 g/dL (3.4-5.0) Albumin/Globulin Ratio 0.8 (1.0-1.7) Lipase 154 U/L (73-393) Salicylates Level 4.0 mg/dL (2.8-20.0) Salicylate Last Dose Date Unknown Salicylate Last Dose Time Unknown O2 Saturation 98 % (92-99) Arterial Blood pH 7.62 (7.35-7.45) Arterial Blood pCO2 at Patient Temp < 15 mmHg (35-46) Arterial Blood pO2 at Patient Temp 101 mmHg (75-108) Arterial Blood HCO3 15 mmol/L (21-28) Arterial Blood Base Excess -3 mmol/L (-3-3) FiO2 Ra Glucose (Fingerstick) 82 mg/dL (70-99) Laboratory Tests Test 11/08/21 12:40 11/08/21 12:43 11/08/21 13:23 White Blood Count 9.2 x10^3/uL (4.0-11.0) Red Blood Count 5.23 x10^6/uL (4.30-5.70) Hemoglobin 15.0 g/dL (13.0-17.5) Hematocrit 42.9 % (39.0-53.0) Mean Corpuscular Volume 82 fL (79-100) Mean Corpuscular Hemoglobin 29 pg (25-35) Mean Corpuscular Hemoglobin Concent 35 g/dL (31-37) Red Cell Distribution Width 13.3 % (11.5-14.5) Platelet Count 122 x10^3/uL (140-400) Neutrophils (%) (Auto) 77 % (31-73) Lymphocytes (%) (Auto) 15 % (24-48) Monocytes (%) (Auto) 7 % (0-9) Eosinophils (%) (Auto) 0 % (0-3) Basophils (%) (Auto) 0 % (0-3) Neutrophils # (Auto) 7.1 x10^3/uL (1.8-7.7) Lymphocytes # (Auto) 1.4 x10^3/uL (1.0-4.8) Monocytes # (Auto) 0.7 x10^3/uL (0.0-1.1) Eosinophils # (Auto) 0.0 x10^3/uL (0.0-0.7) Basophils # (Auto) 0.0 x10^3/uL (0.0-0.2) Sodium Level 140 mmol/L (136-145) Potassium Level 4.1 mmol/L (3.5-5.1) Chloride Level 105 mmol/L (98-107) Carbon Dioxide Level 19 mmol/L (21-32) Anion Gap 16 (6-14) Blood Urea Nitrogen 11 mg/dL (8-26) Creatinine 1.1 mg/dL (0.7-1.3) Estimated GFR (Cockcroft-Gault) 74.1 BUN/Creatinine Ratio 10 (6-20) Glucose Level 90 mg/dL (70-99) Calcium Level 9.1 mg/dL (8.5-10.1) Total Bilirubin 1.0 mg/dL (0.2-1.0) Aspartate Amino Transf (AST/SGOT) 22 U/L (15-37) Alanine Aminotransferase (ALT/SGPT) 33 U/L (16-63) Alkaline Phosphatase 72 U/L (46-116) Troponin I High Sensitivity 23 ng/L (4-75) MM-Tik-U-Type Natriuretic Peptide 17 pg/mL (0-124) Total Protein 8.5 g/dL (6.4-8.2) Albumin 3.9 g/dL (3.4-5.0) Albumin/Globulin Ratio 0.8 (1.0-1.7) Lipase 154 U/L (73-393) Salicylates Level 4.0 mg/dL (2.8-20.0) Salicylate Last Dose Date Unknown Salicylate Last Dose Time Unknown O2 Saturation 98 % (92-99) Arterial Blood pH 7.62 (7.35-7.45) Arterial Blood pCO2 at Patient Temp < 15 mmHg (35-46) Arterial Blood pO2 at Patient Temp 101 mmHg (75-108) Arterial Blood HCO3 15 mmol/L (21-28) Arterial Blood Base Excess -3 mmol/L (-3-3) FiO2 Ra Glucose (Fingerstick) 82 mg/dL (70-99) Images Images CTPA: The central airways are patent. The heart size grossly appears unremarkable. The caliber of the aorta grossly appears unremarkable. Examination is somewhat limited due to minimal contrast within the pulmonary artery and its branches however grossly no evidence of large filling defect identified in the main pulmonary arteries the visualized right and left main pulmonary arteries. The evaluation of distal branches of pulmonary arteries is limited. There are faint multiple patchy scattered groundglass airspace opacities identified in the bilateral lungs. Diffuse decreased attenuation noted in the liver likely st eatosis. The spleen, adrenals grossly appears unremarkable Mild degenerative changes thoracic spine IMPRESSION: 1. No evidence of large filling defect identified in the main pulmonary arteries the visualized right and left main pulmonary arteries. The evaluation of pulmonary arteries is however limited due to minimal contrast within the pulmonary arteries. 2. Faint multiple patchy scattered groundglass airspace opacities identified in the bilateral lungs likely viral or covid pneumonia. Follow-up to resolution. 3. Hepatic steatosis. VTE Prophylaxis Ordered VTE Prophylaxis Devices: No VTE Pharmacological Prophylaxi: Yes Assessment/Plan Assessment/Plan A/P: Respiratory alkalosis -likely anxiety component plays a strong role given the significance of his respiratory alkalosis was printed slowdown with Ativan should be monitored overnight and also repeat labs to make sure that his diarrhea is not contributing in any way metabolically. Anxiety - prn ativan Dyspnea - due to covid 19. no hypoxia Diarrhea - likely covid 19 related. loperamide prn COVID-19 -given symptoms for 9 days and no hypoxia supportive care is indicated no indication for steroids or remdesivir at this time. We will continue to monitor pulse oximetry given his course thus far is unlikely he will become hypoxic. Obesity - counseled on weight loss, lifestyle modification Smoker - counseled on cessation, offered nicotine replacement therapy FEN - General diet PPX - lovenox FULL CODE Dispo - inpatient Justifications for Admission Other Justification OZZY TAYLOR MD Nov 08, 2021 16:03
[2021-11-08] MEDS ORDERED: traMADol 50 MG TABLET PO PRN (17:45)
[2021-11-08] MEDS ORDERED: ONDANSETRON PF 4 MG/2 ML VIAL. IVP PRN (17:45)
[2021-11-08] MEDS ORDERED: ACETAMINOPHEN 325 MG TABLET. PO PRN (17:45)
[2021-11-08] MEDS ORDERED: ONDANSETRON ODT 4 MG TAB.RAPDIS. PO PRN (17:45)
[2021-11-08] MEDS ORDERED: LOPERAMIDE 2 MG CAPSULE PO PRN (18:00)
--- NOTE | 2021-11-08 20:10 | NUR ---
The patient, ANAND COLLAZO, 41 y/o, M admitted by OZZY TAYLOR MD, was given written information regarding hospital policies, unit procedures and contact persons. Valuables were checked and left with him.
[2021-11-08 20:15] VITALS: BP 138/79
[2021-11-08] MEDS ORDERED: PSYLLIUM HUSK (SUGAR FREE) 1 PKT PACKET PO SCH (21:00)
[2021-11-08] MEDS: BENZONATATE 100 MG CAPSULE. PO SCH (21:35)
[2021-11-08] MEDS: guaiFENesin DM 200MG/20MG 10 ML SYRUP PO PRN (21:35)
[2021-11-08 23:17] VITALS: BP 126/75
[2021-11-09 03:06] VITALS: BP 116/79
[2021-11-09 05:06] LABS: ALBUMIN 3.6 g/dL (3.4-5.0); CALCIUM 8.4 mg/dL (8.5-10.1); CREATININE 0.9 mg/dL (0.7-1.3); GFR 93.5; POTASSIUM 3.9 mmol/L (3.5-5.1); TOTAL BILIRUBIN 0.9 mg/dL (0.2-1.0); TOTAL PROTEIN 7.3 g/dL (6.4-8.2)
[2021-11-09 07:00] VITALS: BP 131/88
[2021-11-09] MEDS ORDERED: ENOXAPARIN 40 MG/0.4 ML SYRINGE. SQ SCH (09:00)
[2021-11-09] MEDS ORDERED: ZINC SULFATE 220 MG CAPSULE. PO SCH (09:00)
[2021-11-09] MEDS ORDERED: ASCORBIC ACID 500 MG TABLET PO SCH (09:00)
[2021-11-09] MEDS ORDERED: THIAMINE 100 MG TABLET. PO SCH (09:00)
[2021-11-09] MEDS: guaiFENesin DM 200MG/20MG 10 ML SYRUP PO PRN (09:25)
[2021-11-09] MEDS: BENZONATATE 100 MG CAPSULE. PO SCH ×2 (09:25→14:20)
[2021-11-09 11:00] VITALS: BP 126/79
[2021-11-09] MEDS ORDERED: ALBUTEROL SULFATE 8GM INHALER. INH PRN ×2 (11:15)
--- NOTE | 2021-11-09 12:24 | PDOC ---
[facility] PROGRESS NOTE Date of Service DOS: DATE: 11/09/21 TIME: 12:18 Chief Complaint Chief Complaint A/P: Respiratory alkalosis -likely anxiety component plays a strong role given the significance of his respiratory alkalosis was printed slowdown with Ativan should be monitored overnight and also repeat labs to make sure that his diarrhea is not contributing in any way metabolically. Anxiety - prn ativan Dyspnea - due to covid 19. no hypoxia Diarrhea - likely covid 19 related. loperamide prn COVID-19 -given symptoms for 9 days and no hypoxia supportive care is indicated no indication for steroids or remdesivir at this time. We will continue to monitor pulse oximetry given his course thus far is unlikely he will become hypoxic. Obesity - counseled on weight loss, lifestyle modification Smoker - counseled on cessation, offered nicotine replacement therapy FEN - General diet PPX - lovenox FULL CODE Dispo - inpatient History of Present Illness History of Present Illness Mr Sahni is a 41 year old Yakut speaking only male with no PMHx who presents to ED with worsening shortness of breath and 3 days of chest discomfort. Pain 10/10 at the worst, but is dull nonradiating and worsening with cough, reproducible. He reports associated shortness of breath, nausea, diarrhea and anxiety. He has had shortness of breath and voluminous diarrhea multiple time per day for the past week. Tested positive for COVID-19 on 11/02/2021 comes in ED very tachypneic. Patient reports he has taken aspirin once per day daily for the past week. He is unsure of the dosage. He denies palpitations, sputum production, abdominal pain or recent travel ABG on room air 7.6 01/15/, WBC 9.2, Hb 15, platelets 122, metabolic panel within normal limits, salicylates undetectable, CTPA negative for pulmonary embolism but not fully adequate study bilateral groundglass opacities bilateral lungs. Hepatic steatosis. EKG appears sinus rhythm rate of 89 bpm normal axis and intervals QTc 417 Despite Ativan and respiratory treatments still very tachypneic over 24 breaths per minute. No hypoxia noted Admitted for further care. 11/09: Overnight afebrile. Not hypoxic. Still with increased respirations improved with Tessalon and Ativan. No chest pain. He feels well enough would like to go home. Vitals/I&O Vitals/I&O: Vital Signs Date Time Temp Pulse Resp B/P (MAP) Pulse Ox O2 Delivery O2 Flow Rate FiO2 11/09/21 11:00 98.5 88 14 126/79 (95) 98 Room Air 98.5 I & O 11/08/21 11/08/21 11/09/21 15:00 23:00 07:00 Intake Total 360 ml 240 ml Output Total 350 ml Balance 360 ml -110 ml Physical Exam General: Alert, Oriented X3, Cooperative, moderate distress Abdomen: Normal bowel sounds, Soft, No tenderness, No hepatosplenomegaly, No masses Extremities: No clubbing, No cyanosis, No edema, Normal pulses, No tenderness/swelling Skin: No rashes, No breakdown, No significant lesion Labs Labs: Laboratory Tests Test 11/08/21 12:40 11/08/21 12:43 11/08/21 13:23 11/09/21 03:30 White Blood Count 9.2 x10^3/uL (4.0-11.0) Red Blood Count 5.23 x10^6/uL (4.30-5.70) Hemoglobin 15.0 g/dL (13.0-17.5) Hematocrit 42.9 % (39.0-53.0) Mean Corpuscular Volume 82 fL (79-100) Mean Corpuscular Hemoglobin 29 pg (25-35) Mean Corpuscular Hemoglobin Concent 35 g/dL (31-37) Red Cell Distribution Width 13.3 % (11.5-14.5) Platelet Count 122 x10^3/uL (140-400) Neutrophils (%) (Auto) 77 % (31-73) Lymphocytes (%) (Auto) 15 % (24-48) Monocytes (%) (Auto) 7 % (0-9) Eosinophils (%) (Auto) 0 % (0-3) Basophils (%) (Auto) 0 % (0-3) Neutrophils # (Auto) 7.1 x10^3/uL (1.8-7.7) Lymphocytes # (Auto) 1.4 x10^3/uL (1.0-4.8) Monocytes # (Auto) 0.7 x10^3/uL (0.0-1.1) Eosinophils # (Auto) 0.0 x10^3/uL (0.0-0.7) Basophils # (Auto) 0.0 x10^3/uL (0.0-0.2) Sodium Level 140 mmol/L (136-145) 142 mmol/L (136-145) Potassium Level 4.1 mmol/L (3.5-5.1) 3.9 mmol/L (3.5-5.1) Chloride Level 105 mmol/L (98-107) 105 mmol/L (98-107) Carbon Dioxide Level 19 mmol/L (21-32) 23 mmol/L (21-32) Anion Gap 16 (6-14) 14 (6-14) Blood Urea Nitrogen 11 mg/dL (8-26) 13 mg/dL (8-26) Creatinine 1.1 mg/dL (0.7-1.3) 0.9 mg/dL (0.7-1.3) Estimated GFR (Cockcroft-Gault) 74.1 93.5 BUN/Creatinine Ratio 10 (6-20) 14 (6-20) Glucose Level 90 mg/dL (70-99) 97 mg/dL (70-99) Calcium Level 9.1 mg/dL (8.5-10.1) 8.4 mg/dL (8.5-10.1) Total Bilirubin 1.0 mg/dL (0.2-1.0) 0.9 mg/dL (0.2-1.0) Aspartate Amino Transf (AST/SGOT) 22 U/L (15-37) 16 U/L (15-37) Alanine Aminotransferase (ALT/SGPT) 33 U/L (16-63) 29 U/L (16-63) Alkaline Phosphatase 72 U/L (46-116) 69 U/L (46-116) Troponin I High Sensitivity 23 ng/L (4-75) 21 ng/L (4-75) EA-Jsr-S-Type Natriuretic Peptide 17 pg/mL (0-124) Total Protein 8.5 g/dL (6.4-8.2) 7.3 g/dL (6.4-8.2) Albumin 3.9 g/dL (3.4-5.0) 3.6 g/dL (3.4-5.0) Albumin/Globulin Ratio 0.8 (1.0-1.7) 1.0 (1.0-1.7) Lipase 154 U/L (73-393) Salicylates Level 4.0 mg/dL (2.8-20.0) Salicylate Last Dose Date Unknown Salicylate Last Dose Time Unknown O2 Saturation 98 % (92-99) Arterial Blood pH 7.62 (7.35-7.45) Arterial Blood pCO2 at Patient Temp < 15 mmHg (35-46) Arterial Blood pO2 at Patient Temp 101 mmHg (75-108) Arterial Blood HCO3 15 mmol/L (21-28) Arterial Blood Base Excess -3 mmol/L (-3-3) FiO2 Ra Glucose (Fingerstick) 82 mg/dL (70-99) Assessment and Plan Assessmemt and Plan Problems Medical Problems: (1) COVID-19 Status: Acute (2) Dyspnea Status: Acute (3) Respiratory alkalosis Status: Acute Comment Review of Relevant I have reviewed the following items domenica (where applicable) has been applied. Medications: Current Medications Medications (Trade) Dose Ordered Sig/Shari Route PRN Reason Start Time Stop Time Status Last Admin Dose Admin Aspirin (Aspirin Chewable) 324 mg 1X ONCE PO 11/08/21 12:45 11/08/21 12:50 DC 11/08/21 12:45 Lorazepam (Ativan Inj) 1 mg 1X ONCE IVP 11/08/21 13:00 11/08/21 13:02 DC 11/08/21 13:24 Tramadol HCl (Ultram) 50 mg PRN Q6HRS PRN PO PAIN 11/08/21 17:45 11/08/21 21:39 Guaifenesin (Robitussin Dm) 10 ml PRN Q6HRS PRN PO COUGH 11/08/21 17:45 11/09/21 09:25 Enoxaparin Sodium (Lovenox 40mg Syringe) 40 mg Q24H SQ 11/09/21 09:00 11/09/21 09:25 Ondansetron HCl (Zofran Odt) 4 mg PRN Q4HRS PRN PO NAUSEA 11/08/21 17:45 11/08/21 21:35 Lorazepam (Ativan) 1 mg PRN Q6HRS PRN PO ANXIETY / AGITATION 11/08/21 17:45 11/08/21 21:35 Benzonatate (Tessalon Perle) 100 mg [id number] PO 11/08/21 21:00 11/09/21 09:25 Psyllium Hydrophilic Mucilloid (Metamucil Fiber Packet) 1 pkt QHS PO 11/08/21 21:00 11/08/21 21:35 Zinc Sulfate (Orazinc) 220 mg DAILY PO 11/09/21 09:00 11/09/21 09:26 Thiamine Mononitrate (Vitamin B-1) 100 mg DAILY PO 11/09/21 09:00 11/09/21 09:25 Ascorbic Acid (Vitamin C) 500 mg DAILY PO 11/09/21 09:00 11/09/21 09:25 Justifications for Admission Other Justification OZZY TAYLOR MD Nov 09, 2021 12:24
[2021-11-09] MEDS ORDERED: LORA-434 PO (12:27)
[2021-11-09] MEDS ORDERED: BENZ200C47 PO (12:27)
--- NOTE | 2021-11-09 12:31 | PDOC3 ---
Discharge Summary Visit Information Date of Admission: Nov 08, 2021 Date of Discharge: Nov 09, 2021 Admitting Diagnosis: Respiratory alkalosis, COVID-19 positive Final Diagnosis Problems Medical Problems: (1) COVID-19 Status: Acute (2) Dyspnea Status: Acute (3) Respiratory alkalosis Status: Acute Brief Hospital Course Allergies Allergies Coded Allergies Type Severity Reaction Last Updated Verified No Known Drug Allergies 11/08/21 No Vital Signs Vital Signs Date Time Temp Pulse Resp B/P (MAP) Pulse Ox O2 Delivery O2 Flow Rate FiO2 11/09/21 11:00 98.5 88 14 126/79 (95) 98 Room Air 98.5 Lab Results Laboratory Tests Test 11/08/21 12:40 11/08/21 12:43 11/08/21 13:23 11/09/21 03:30 White Blood Count 9.2 x10^3/uL (4.0-11.0) Red Blood Count 5.23 x10^6/uL (4.30-5.70) Hemoglobin 15.0 g/dL (13.0-17.5) Hematocrit 42.9 % (39.0-53.0) Mean Corpuscular Volume 82 fL (79-100) Mean Corpuscular Hemoglobin 29 pg (25-35) Mean Corpuscular Hemoglobin Concent 35 g/dL (31-37) Red Cell Distribution Width 13.3 % (11.5-14.5) Platelet Count 122 x10^3/uL (140-400) Neutrophils (%) (Auto) 77 % (31-73) Lymphocytes (%) (Auto) 15 % (24-48) Monocytes (%) (Auto) 7 % (0-9) Eosinophils (%) (Auto) 0 % (0-3) Basophils (%) (Auto) 0 % (0-3) Neutrophils # (Auto) 7.1 x10^3/uL (1.8-7.7) Lymphocytes # (Auto) 1.4 x10^3/uL (1.0-4.8) Monocytes # (Auto) 0.7 x10^3/uL (0.0-1.1) Eosinophils # (Auto) 0.0 x10^3/uL (0.0-0.7) Basophils # (Auto) 0.0 x10^3/uL (0.0-0.2) Sodium Level 140 mmol/L (136-145) 142 mmol/L (136-145) Potassium Level 4.1 mmol/L (3.5-5.1) 3.9 mmol/L (3.5-5.1) Chloride Level 105 mmol/L (98-107) 105 mmol/L (98-107) Carbon Dioxide Level 19 mmol/L (21-32) 23 mmol/L (21-32) Anion Gap 16 (6-14) 14 (6-14) Blood Urea Nitrogen 11 mg/dL (8-26) 13 mg/dL (8-26) Creatinine 1.1 mg/dL (0.7-1.3) 0.9 mg/dL (0.7-1.3) Estimated GFR (Cockcroft-Gault) 74.1 93.5 BUN/Creatinine Ratio 10 (6-20) 14 (6-20) Glucose Level 90 mg/dL (70-99) 97 mg/dL (70-99) Calcium Level 9.1 mg/dL (8.5-10.1) 8.4 mg/dL (8.5-10.1) Total Bilirubin 1.0 mg/dL (0.2-1.0) 0.9 mg/dL (0.2-1.0) Aspartate Amino Transf (AST/SGOT) 22 U/L (15-37) 16 U/L (15-37) Alanine Aminotransferase (ALT/SGPT) 33 U/L (16-63) 29 U/L (16-63) Alkaline Phosphatase 72 U/L (46-116) 69 U/L (46-116) Troponin I High Sensitivity 23 ng/L (4-75) 21 ng/L (4-75) WN-Epf-E-Type Natriuretic Peptide 17 pg/mL (0-124) Total Protein 8.5 g/dL (6.4-8.2) 7.3 g/dL (6.4-8.2) Albumin 3.9 g/dL (3.4-5.0) 3.6 g/dL (3.4-5.0) Albumin/Globulin Ratio 0.8 (1.0-1.7) 1.0 (1.0-1.7) Lipase 154 U/L (73-393) Salicylates Level 4.0 mg/dL (2.8-20.0) Salicylate Last Dose Date Unknown Salicylate Last Dose Time Unknown O2 Saturation 98 % (92-99) Arterial Blood pH 7.62 (7.35-7.45) Arterial Blood pCO2 at Patient Temp < 15 mmHg (35-46) Arterial Blood pO2 at Patient Temp 101 mmHg (75-108) Arterial Blood HCO3 15 mmol/L (21-28) Arterial Blood Base Excess -3 mmol/L (-3-3) FiO2 Ra Glucose (Fingerstick) 82 mg/dL (70-99) Laboratory Tests Test 11/08/21 12:40 11/08/21 12:43 11/08/21 13:23 11/09/21 03:30 White Blood Count 9.2 x10^3/uL (4.0-11.0) Red Blood Count 5.23 x10^6/uL (4.30-5.70) Hemoglobin 15.0 g/dL (13.0-17.5) Hematocrit 42.9 % (39.0-53.0) Mean Corpuscular Volume 82 fL (79-100) Mean Corpuscular Hemoglobin 29 pg (25-35) Mean Corpuscular Hemoglobin Concent 35 g/dL (31-37) Red Cell Distribution Width 13.3 % (11.5-14.5) Platelet Count 122 x10^3/uL (140-400) Neutrophils (%) (Auto) 77 % (31-73) Lymphocytes (%) (Auto) 15 % (24-48) Monocytes (%) (Auto) 7 % (0-9) Eosinophils (%) (Auto) 0 % (0-3) Basophils (%) (Auto) 0 % (0-3) Neutrophils # (Auto) 7.1 x10^3/uL (1.8-7.7) Lymphocytes # (Auto) 1.4 x10^3/uL (1.0-4.8) Monocytes # (Auto) 0.7 x10^3/uL (0.0-1.1) Eosinophils # (Auto) 0.0 x10^3/uL (0.0-0.7) Basophils # (Auto) 0.0 x10^3/uL (0.0-0.2) Sodium Level 140 mmol/L (136-145) 142 mmol/L (136-145) Potassium Level 4.1 mmol/L (3.5-5.1) 3.9 mmol/L (3.5-5.1) Chloride Level 105 mmol/L (98-107) 105 mmol/L (98-107) Carbon Dioxide Level 19 mmol/L (21-32) 23 mmol/L (21-32) Anion Gap 16 (6-14) 14 (6-14) Blood Urea Nitrogen 11 mg/dL (8-26) 13 mg/dL (8-26) Creatinine 1.1 mg/dL (0.7-1.3) 0.9 mg/dL (0.7-1.3) Estimated GFR (Cockcroft-Gault) 74.1 93.5 BUN/Creatinine Ratio 10 (6-20) 14 (6-20) Glucose Level 90 mg/dL (70-99) 97 mg/dL (70-99) Calcium Level 9.1 mg/dL (8.5-10.1) 8.4 mg/dL (8.5-10.1) Total Bilirubin 1.0 mg/dL (0.2-1.0) 0.9 mg/dL (0.2-1.0) Aspartate Amino Transf (AST/SGOT) 22 U/L (15-37) 16 U/L (15-37) Alanine Aminotransferase (ALT/SGPT) 33 U/L (16-63) 29 U/L (16-63) Alkaline Phosphatase 72 U/L (46-116) 69 U/L (46-116) Troponin I High Sensitivity 23 ng/L (4-75) 21 ng/L (4-75) XQ-Oyp-H-Type Natriuretic Peptide 17 pg/mL (0-124) Total Protein 8.5 g/dL (6.4-8.2) 7.3 g/dL (6.4-8.2) Albumin 3.9 g/dL (3.4-5.0) 3.6 g/dL (3.4-5.0) Albumin/Globulin Ratio 0.8 (1.0-1.7) 1.0 (1.0-1.7) Lipase 154 U/L (73-393) Salicylates Level 4.0 mg/dL (2.8-20.0) Salicylate Last Dose Date Unknown Salicylate Last Dose Time Unknown O2 Saturation 98 % (92-99) Arterial Blood pH 7.62 (7.35-7.45) Arterial Blood pCO2 at Patient Temp < 15 mmHg (35-46) Arterial Blood pO2 at Patient Temp 101 mmHg (75-108) Arterial Blood HCO3 15 mmol/L (21-28) Arterial Blood Base Excess -3 mmol/L (-3-3) FiO2 Ra Glucose (Fingerstick) 82 mg/dL (70-99) Brief Hospital Course Mr Sahni is a 41 year old Kinyarw[place] speaking only male with no PMHx who presents to ED with worsening shortness of breath and 3 days of chest discomfort. Pain 10/10 at the worst, but is dull nonradiating and worsening with cough, reproducible. He reports associated shortness of breath, nausea, diarrhea and anxiety. He has had shortness of breath and voluminous diarrhea multiple time per day for the past week. Tested positive for COVID-19 on 11/02/2021 comes in ED very tachypneic. Patient reports he has taken aspirin once per day daily for the past week. He is unsure of the dosage. He denies palpitations, sputum production, abdominal pain or recent travel ABG on room air 7.6 , WBC 9.2, Hb 15, platelets 122, metabolic panel within normal limits, salicylates undetectable, CTPA negative for pulmonary embolism but not fully adequate study bilateral groundglass opacities bilateral lungs. Hepatic steatosis. EKG appears sinus rhythm rate of 89 bpm normal axis and intervals QTc 417 Despite Ativan and respiratory treatments still very tachypneic over 24 breaths per minute. No hypoxia noted Admitted for further care. 11/09: Overnight afebrile. Not hypoxic. Still with increased respirations improved with Tessalon and Ativan. No chest pain. He feels well enough would like to go home. Given albuterol inhaler and Tessalon as well as Ativan for anxiety. Given instructions for return if symptoms worsen. Problem list: Respiratory alkalosis -likely anxiety component plays a strong role given the significance of his respiratory alkalosis was slowed down with Ativan, improved with overnight monitoring Anxiety - prn ativan Dyspnea - due to covid 19. no hypoxia Diarrhea - likely covid 19 related. loperamide prn COVID-19 -given symptoms for 9 days and no hypoxia supportive care is indicated no indication for steroids or remdesivir at this time. We will continue to monitor pulse oximetry given his course thus far is unlikely he will become hypoxic. Obesity - counseled on weight loss, lifestyle modification Smoker - counseled on cessation, offered nicotine replacement therapy Greater than 30 minutes spent on d/c home with self care. Discharge Information Condition at Discharge: Improved Follow Up: Weeks (1) Disposition/Orders: D/C to Home Scheduled PRN Albuterol Sulfate (Proair Hfa Inhaler) 8.5 Gm Hfa.aer.ad, 1-2 PUFF INH PRN Q6HRS PRN for SHORTNESS OF BREATH, #1 Ref 0 Prescribed by: LAURIE SALTER APRN on 11/02/21 1236 Benzonatate (Benzonatate) 200 Mg Capsule, 1 CAP PO PRN TID PRN for cough for 7 Days, #20 Ref 0 Prescribed by: OZZY TAYLOR MD on 11/09/21 1227 Lorazepam (Ativan) 1 Mg Tablet, 1 MG PO PRN Q6HRS PRN for ANXIETY / AGITATION for 6 Days, #18 Prescribed by: OZZY TAYLOR MD on 11/09/21 1228 Ondansetron Hcl (Zofran) 4 Mg Tablet, 4 MG PO PRN TID PRN for VOMITING, #20 nausea/vomiting Prescribed by: YADI HARRISON DO on 11/06/21 1008 Justicifation of Admission Dx: Justifications for Admission: Justification of Admission Dx: Yes OZZY TAYLOR MD Nov 09, 2021 12:31
--- NOTE | 2021-11-09 14:46 | NUR ---
Discharge education given. IV and telemonitor discontinued by Constance Amin CNA escorted patient to ER entrance to private vehicle.
== END 2021-11-09 14:46 | disposition home or self-care (01) | DRG 178 ==
LOC: ER 11:40 → ED HOLD 15:15 → 5 NORTH 17:08
PROVIDERS: ADMIT Internal Medicine; ATTEND Internal Medicine
DX: U07.1 COVID-19 (principal); E87.3 Alkalosis; E66.9 Obesity, unspecified; F17.210 Nicotine dependence, cigarettes, uncomplicated; F41.9 Anxiety disorder, unspecified; K76.0 Fatty (change of) liver, not elsewhere classified; Z82.49 Family history of ischemic heart disease and other diseases of the circulatory system; Z83.3 Family history of diabetes mellitus; Z68.34 Body mass index [BMI] 34.0-34.9, adult
CPT/HCPCS: 36415; 36600; 71275; 80053; 80329; 82805; 82962; 83690; 83880; 84484; 85025; 93005; J1650; J2060; 99285-25; G0378; G0480

== ENCOUNTER 2021-11-27 22:57 | Emergency (ER) | payer SELFPAY ==
[~2021-11-27 22:57] MED LIST changes: +LORA-434 PO
[2021-11-28] MEDS ORDERED: BENZ200C47 PO (18:17)
[2021-11-28] MEDS ORDERED: ALBU2.5V8 IH (18:17)
[2021-11-28] MEDS ORDERED: AZIT250T6 PO (18:17)
== END 2021-11-28 01:20 | disposition left against medical advice (07) ==
LOC: ER 22:57
DX: R07.9 Chest pain, unspecified (principal); R06.02 Shortness of breath; Z53.21 Procedure and treatment not carried out due to patient leaving prior to being seen by health care provider

== ENCOUNTER 2021-11-28 14:26 | Emergency (ER) | payer SELFPAY ==
[~2021-11-28] VITALS: Ht 177.8 cm; Wt 104.0 kg
[2021-11-28 16:00] LABS: BASO % 0 % (0-3); EOS % 0 % (0-3); HEMATOCRIT 40.9 % (39.0-53.0); LYMPH # 2.1 x10^3/uL (1.0-4.8); LYMPH % 26 % (24-48); MEAN CORPUSCULAR HEMOGLOBIN 29 pg (25-35); MEAN CORPUSCULAR HGB CONC 34 g/dL (31-37); MEAN CORPUSCULAR VOLUME 83 fL (79-100); MONO # 0.5 x10^3/uL (0.0-1.1); MONO % 6 % (0-9); NEUT # 5.6 x10^3/uL (1.8-7.7); NEUT % 68 % (31-73); PLATELET COUNT 192 x10^3/uL (140-400); RED BLOOD COUNT 4.93 x10^6/uL (4.30-5.70); RED CELL DISTRIBUTION WIDTH 13.6 % (11.5-14.5); WHITE BLOOD COUNT 8.2 x10^3/uL (4.0-11.0)
--- NOTE | 2021-11-28 16:14 | RAD ---
XR CHEST 1V Clinical Indication: Reason: soa / Comparison: AP chest November 06, 2021. CT chest with contrast November 08, 2021. Findings: The cardiomediastinal silhouette is normal. Faint bilateral airspace opacities have not progressed fr om prior study. There is no pneumothorax. No pleural effusion is appreciated. No acute bone abnormali ty. IMPRESSION: Faint bilateral airspace opacities are mildly improved. Electronically signed by: Jorje Guerrero MD (11/28/2021 4:12 PM) [facility]
[2021-11-28 16:15] LABS: CALCIUM 9.5 mg/dL (8.5-10.1); CREATININE 1.1 mg/dL (0.7-1.3); GFR 74.1; POTASSIUM 3.6 mmol/L (3.5-5.1)
--- NOTE | 2021-11-28 16:26 | PHYS DOC ---
Past Medical History Past Surgical History: No Surgical History (JOANNE JORDAN APRN) Smoking Status: Never Smoker Alcohol Use: None (JOANNE JORDAN APRN) General Adult EDM: Chief Complaint: SHORTNESS OF BREATH HPI: HPI: Patient is a 41-year-old male who presents to the emergency department for generalized chest pressure that started 2 days ago. He rates the pain 9 out of 10. It is worse with coughing. Patient is also reporting a nonproductive cough, shortness of breath, vomiting. Patient was Covid +2 weeks ago. Patient denies any fevers, sick exposures, nausea currently or any loss of taste or smell. Only medical history is hyperlipidemia. Patient's vital signs are stable and he is in no acute distress. Patient is Luxembourger-speaking and nut former was used. (JOANNE JORDAN APRN) Review of Systems: Review of Systems: 14 body systems of the review of systems have been reviewed. See HPI for pertinent positive and negative responses, otherwise all other systems are negative, nonpertinent or noncontributory (JOANNE JORDAN APRN) Heart Score: C/O Chest Pain: Yes HEART Score for Chest Pain: HEART Score for Chest Pain Response (Comments) Value History Slighlty/Non-Suspicious 0 ECG Normal 0 Age < 45 0 Risk Factors 1 or 2 Risk Factors 1 Troponin < Normal Limit 0 Total 1 Risk Factors: Risk Factors: DM, Current or recent (<one month) smoker, HTN, HLP, family history of CAD, obesity. Risk Scores: Score 0 - 3: 2.5% MACE over next 6 weeks - Discharge Home Score 4 - 6: 20.3% MACE over next 6 weeks - Admit for Clinical Observation Score 7 - 10: 72.7% MACE over next 6 weeks - Early Invasive Strategies (JOANNE JORDAN APRN) Allergies: Allergies: Allergies Coded Allergies Type Severity Reaction Last Updated Verified No Known Drug Allergies 11/08/21 No (JOANNE JORDAN APRN) Physical Exam: PE: Constitutional: Well developed, well nourished, no acute distress, non-toxic appearance. [] HENT: Normocephalic, atraumatic, bilateral external ears normal, oropharynx moist, no oral exudates, nose normal. [] Eyes: PERRL, EOMI, conjunctiva normal, no discharge. [] Neck: Normal range of motion, no tenderness, supple, no stridor. [] Cardiovascular:Heart rate regular rhythm, no murmur [] Lungs & Thorax: Bilateral breath sounds clear to auscultation [] Abdomen: Bowel sounds normal, soft, no tenderness, no masses, no pulsatile masses. [] Skin: Warm, dry, no erythema, no rash. [] Back: Normal range of motion Extremities: No tenderness, no cyanosis, no clubbing, ROM intact, no edema. [] Neurologic: Alert and oriented X 3, normal motor function, normal sensory function, no focal deficits noted. [] Psychologic: Affect normal, judgement normal, mood normal. [] (JOANNE JORDAN APRN) Current Patient Data: Labs: Laboratory Tests Test 11/28/21 15:40 11/28/21 16:39 White Blood Count 8.2 x10^3/uL Red Blood Count 4.93 x10^6/uL Hemoglobin 14.0 g/dL Hematocrit 40.9 % Mean Corpuscular Volume 83 fL Mean Corpuscular Hemoglobin 29 pg Mean Corpuscular Hemoglobin Concent 34 g/dL Red Cell Distribution Width 13.6 % Platelet Count 192 x10^3/uL Neutrophils (%) (Auto) 68 % Lymphocytes (%) (Auto) 26 % Monocytes (%) (Auto) 6 % Eosinophils (%) (Auto) 0 % Basophils (%) (Auto) 0 % Neutrophils # (Auto) 5.6 x10^3/uL Lymphocytes # (Auto) 2.1 x10^3/uL Monocytes # (Auto) 0.5 x10^3/uL Eosinophils # (Auto) 0.0 x10^3/uL Basophils # (Auto) 0.0 x10^3/uL Sodium Level 141 mmol/L Potassium Level 3.6 mmol/L Chloride Level 104 mmol/L Carbon Dioxide Level 22 mmol/L Anion Gap 15 Blood Urea Nitrogen 9 mg/dL Creatinine 1.1 mg/dL Estimated GFR (Cockcroft-Gault) 74.1 BUN/Creatinine Ratio 8 Glucose Level 92 mg/dL Calcium Level 9.5 mg/dL Total Bilirubin 0.6 mg/dL Aspartate Amino Transf (AST/SGOT) 19 U/L Alanine Aminotransferase (ALT/SGPT) 43 U/L Alkaline Phosphatase 66 U/L Troponin I High Sensitivity 28 ng/L Total Protein 8.6 g/dL Albumin 4.1 g/dL Albumin/Globulin Ratio 0.9 Influenza Type A Antigen Negative Influenza Type B Antigen Negative Laboratory Tests Test 11/28/21 15:40 White Blood Count 8.2 x10^3/uL (4.0-11.0) Red Blood Count 4.93 x10^6/uL (4.30-5.70) Hemoglobin 14.0 g/dL (13.0-17.5) Hematocrit 40.9 % (39.0-53.0) Mean Corpuscular Volume 83 fL (79-100) Mean Corpuscular Hemoglobin 29 pg (25-35) Mean Corpuscular Hemoglobin Concent 34 g/dL (31-37) Red Cell Distribution Width 13.6 % (11.5-14.5) Platelet Count 192 x10^3/uL (140-400) Neutrophils (%) (Auto) 68 % (31-73) Lymphocytes (%) (Auto) 26 % (24-48) Monocytes (%) (Auto) 6 % (0-9) Eosinophils (%) (Auto) 0 % (0-3) Basophils (%) (Auto) 0 % (0-3) Neutrophils # (Auto) 5.6 x10^3/uL (1.8-7.7) Lymphocytes # (Auto) 2.1 x10^3/uL (1.0-4.8) Monocytes # (Auto) 0.5 x10^3/uL (0.0-1.1) Eosinophils # (Auto) 0.0 x10^3/uL (0.0-0.7) Basophils # (Auto) 0.0 x10^3/uL (0.0-0.2) Laboratory Tests 11/28/21 15:40 (JOANNE JORDAN APRN) EKG: EKG: [] EKG performed by ER staff at 1531 shows sinus rhythm with a rate of 72, QTC of 385, no STEMI read by Dr. Christopher at 1539. (JOANNE JORDAN APRN) Radiology/Procedures: Radiology/Procedures: []REASON: soa PROCEDURE: PORTABLE CHEST 1V XR CHEST 1V Clinical Indication: Reason: soa / Comparison: AP chest November 06, 2021. CT chest with contrast November 08, 2021. Findings: The cardiomediastinal silhouette is normal. Faint bilateral airspace opacities have not progressed from prior study. There is no pneumothorax. No pleural effusion is appreciated. No acute bone abnormality. IMPRESSION: Faint bilateral airspace opacities are mildly improved. Electronically signed by: Jorje Guerrero MD (11/28/2021 4:12 PM) [facility] DICTATED and SIGNED BY: JORJE GUERRERO MD DATE: 11/28/21 [id number] 0 (JOANNE JORDAN APRN) Course & Med Decision Making: Course & Med Decision Making Pertinent Labs and Imaging studies reviewed. (See chart for details) [] Patient presents to the emergency department for generalized chest pain, nonproductive cough, shortness of breath and vomiting. Patient was Covid +2 weeks ago. His vital signs are stable, he is not tachycardic nor hypoxic. His PERC score is 0, no risk for PE. Chest pain started 2 days ago and is reproducible with cough. Work-up in the ER consisted of blood work, chest x-ray and EKG. was unremarkable. Patient had negative influenza test. Chest x-ray showed faint bilateral opacities and patient will be treated with an antibiotic. Advised to purchase pulse oximeter. Patient's vital signs are stable and he is in no acute distress. I discussed with patient all findings and diagnostic testing as well as the need to follow-up with PCP for further evaluation and treatment or return to the ER if any new or worsening symptoms. Strict return precautions were also discussed at length. Patient voiced understanding and agreement with the plan. Patient is hemodynamically stable at the time of disposition. (JOANNE JORDAN APRN) Course & Med Decision Making I was the Attending physician on the above date of service of this patient. This patient was evaluated, examined, treated, and dispositioned from the emergency department by the mid-level practitioner. Although I was working at the time , no assistance was requested. Electronically signed, Michael Christopher DO (MICHAEL CHRISTOPHER DO) Yaritza Disclaimer: Yaritza Disclaimer: This electronic medical record was generated, in whole or in part, using a voice recognition dictation system. (JOANNE JORDAN APRN) Departure Departure Impression: Primary Impression: Pneumonia Qualified Codes: J18.9 - Pneumonia, unspecified organism Disposition: HOME / SELF CARE / HOMELESS Condition: GOOD Referrals: NO PCP (PCP) Patient Instructions: Pneumonia, Adult Additional Instructions: You were seen in the emergency department today for cough and shortness of breath. Your blood work was unremarkable. Your rapid influenza test was negative. We tested you in the emergency department for COVID-19. Your chest x-ray showed pneumonia which will be treated with antibiotic. Please start and finish the antibiotic completely. Increase your fluids and rest. For any pain take Tylenol and/ibuprofen. For shortness of breath, you are being discharged home with an albuterol inhaler that you can use as needed. For your cough you are being discharged home with Melissa Carrillo, use these as directed. Follow- up with your primary care provider tomorrow regarding your ER visit. Please return to the emergency department if you develop chest pain, shortness of breath, high fevers refractory to treatment, intractable nausea or vomiting, weakness or any new or worsening concerns. Scripts Benzonatate (BENZONATATE) 200 Mg Capsule 1 CAP PO PRN TID PRN for cough for 7 Days, #21 CAP 0 Refills Prov: JOANNE JORDAN APRN 11/28/21 Albuterol Sulfate (Proair Hfa) 8.5 Gm Hfa.aer.ad 2 PUFF IH PRN Q4-6HRS PRN for wheezing for 21 Days, #1 INHALER 0 Refills Prov: JOANNE JORDAN APRN 11/28/21 Azithromycin (AZITHROMYCIN TABLET) 250 Mg Tablet 1 PKG PO UD for 5 Days, #6 TAB 0 Refills 2 the first day followed by 1 for days 2-5 Prov: JOANNE JORDAN APRN 11/28/21 JOANNE JORDAN APRN Nov 28, 2021 16:25 MICHAEL CHRISTOPHER DO Nov 29, 2021 07:20
[2021-11-28 16:28] LABS: ALBUMIN 4.1 g/dL (3.4-5.0); ALBUMIN/GLOBULIN RATIO 0.9 (1.0-1.7); TOTAL BILIRUBIN 0.6 mg/dL (0.2-1.0); TOTAL PROTEIN 8.6 g/dL (6.4-8.2)
[2021-11-28 18:05] LABS: INFLUENZA A PATIENT NEGATIVE (NEGATIVE); INFLUENZA B PATIENT NEGATIVE (NEGATIVE)
[2021-11-28] MEDS ORDERED: ALBU2.5V8 IH (18:17)
[2021-11-28] MEDS ORDERED: BENZ200C47 PO (18:17)
[2021-11-28] MEDS ORDERED: AZIT250T6 PO (18:17)
[2021-11-28 18:19] VITALS: BP 117/79
--- NOTE | 2021-11-29 16:11 | EKG ---
[facility] [address] [place] [id number] Test Date: 2021-11-28 Test Time: 15:31:10 Pat Name: ANAND COLLAZO Department: Room: Gender: M Dumpman: : 1980 Requested By: JOANNE JORDAN Order Number: [id number] Reading MD: Measurements Intervals [place] Rate: 72 P: AR: QRS: 9 QRSD: 92 T: 40 QT: 350 QTc: 385 Interpretive Statements IRREGULAR RHYTHM, NO P-WAVE FOUND OTHERWISE NORMAL ECG RI6.02 Compared to ECG 11/08/2021 12:55:25 Sinus rhythm no longer present
--- NOTE | 2021-11-29 16:42 | NUR ---
IP:Attempted to contact pt concerning covid results. No answer, left a voicemail to return the call.
--- NOTE | 2021-11-30 14:58 | NUR ---
IP: Attempted a second time to contact pt concerning covid results. No answer, left a second voicemail to return the call
== END 2021-11-28 18:48 | disposition home or self-care (01) ==
LOC: ER 14:26
DX: J18.9 Pneumonia, unspecified organism (principal); Z20.822 Contact with and (suspected) exposure to COVID-19
CPT/HCPCS: 36415; 71045; 80053; 84484; 85025; 87804; 93005; 99285; U0003; U0005

== ENCOUNTER 2021-12-04 21:10 | Emergency (ER) | payer SELFPAY ==
[~2021-12-04] VITALS: Ht 175.3 cm; Wt 101.5 kg
[~2021-12-04 21:10] MED LIST changes: +ALBU2.5V8 IH; +AZIT250T6 PO
--- NOTE | 2021-12-05 00:28 | PHYS DOC ---
Past Medical History Past Surgical History: No Surgical History Smoking Status: Never Smoker Alcohol Use: None General Adult EDM: Chief Complaint: COUGH HPI: HPI: Patient is a 41 year old male who presents with right-sided rib and flank pain, which has been present for over a month. Symptoms began after he was coughing excessively at the beginning of October, when he was diagnosed with Covid. He was not vaccinated against COVID-19. He has been coughing essentially daily si nce that time. He denies purulent sputum or hemoptysis. He denies fevers or chills. He denies chest pain or pressure. He denies pleuritic discomfort. He reports that the pain is worse with coughing movement and palpation. The pain is isolated just to the right side. He denies lower extremity pain or swelling. He denies exertional pain, exertional dyspnea, denies PND orthopnea symptoms. He has been seen multiple times since his COVID-19 infection is resolved, he had a negative Covid test at the end of October. He has seen his primary care doctor, as recently as yesterday, and he was prescribed Augmentin, prednisone, Pepcid and he is taken [id number] guaifenesin to help with his cough. He has not taking any pain medication to help with the pain, the pain seems to be his main concern. He has not been able to return to work, and this persistent pain and discomfort has made him very anxious and worried that he will not be able to return to work. He does not know why the antibiotics he has been given on 2 occasions has not resolved his cough or his discomfort. Review of Systems: Review of Systems: Constitutional: Denies fever or chills. [] Eyes: Denies change in visual acuity. [] HENT: Denies nasal congestion or sore throat. [] Respiratory: Dry cough, chronic for over a month. Denies dyspnea or wheezing. Cardiovascular: Denies chest pain or edema. [] GI: Denies abdominal pain, nausea, vomiting. He reports a few episodes of diarrhea since starting Augmentin. : Denies gross hematuria. He does report some urinary urgency. Musculoskeletal: Right flank pain Integument: Denies rash. [] Neurologic: Denies headache, focal weakness or sensory changes. [] Psychiatric: Anxiety related to clinical condition and chronic cough and discomf ort symptoms. [] Heart Score: C/O Chest Pain: No Risk Factors: Risk Factors: DM, Current or recent (<one month) smoker, HTN, HLP, family history of CAD, obesity. Risk Scores: Score 0 - 3: 2.5% MACE over next 6 weeks - Discharge Home Score 4 - 6: 20.3% MACE over next 6 weeks - Admit for Clinical Observation Score 7 - 10: 72.7% MACE over next 6 weeks - Early Invasive Strategies Allergies: Allergies: Allergies Coded Allergies Type Severity Reaction Last Updated Verified No Known Drug Allergies 11/08/21 No Physical Exam: PE: Constitutional: Well developed, well nourished, no acute distress, non-toxic appearance. Anxious. HENT: Normocephalic, atraumatic, mucus membranes are moist Eyes: Sclera are clear and anicteric Neck: Normal range of motion, no tenderness, supple, no stridor. [] Cardiovascular:Heart rate regular rhythm, +2 radial pulses, +2 posterior tibial pulses, no peripheral edema Lungs & Thorax: Bilateral breath sounds clear to auscultation, no rales, rhonchi or wheezes. No distress. No tachypnea, no retractions. Equal chest rise. No stridor. Frequent dry cough is noted. Abdomen: Abdomen is obese, soft, nondistended, nontender to palpation, no palpable pulsatile mass, no flank or abdominal ecchymoses. Normal bowel sounds. No palpable masses organomegaly. Skin: Warm, dry, no erythema, no rash. [] Back: No formally, no midline tenderness or step-offs. Palpation of the right lateral posterior rib/flank area reproduces pain. No palpable crepitus, no subcutaneous emphysema, no ecchymoses, no warmth or erythema, no rash. No CVA tenderness. Extremities: No tenderness, no cyanosis, no clubbing, ROM intact, no edema. No calf tenderness. Neurologic: Alert and oriented X 3, normal motor function, normal sensory function, no focal deficits noted. [] Psychologic: He is anxious, he is cooperative [] Current Patient Data: Vital Signs: Vital Signs Date Time Temp Pulse Resp B/P (MAP) Pulse Ox O2 Delivery O2 Flow Rate FiO2 12/05/21 00:12 90 20 127/87 (100) 96 EKG: EKG: [] Radiology/Procedures: Radiology/Procedures: IMAGING REPORT Signed PATIENT: ANAND COLLAZOACCOUNT: [id number] : 1980 LOCATION: ER AGE: 41 SEX: M EXAM STATUS: REG ER ORD. PHYSICIAN: YADI HARRISON DO REASON: cough PROCEDURE: PORTABLE CHEST 1V EXAM: AP View of the chest DATE: 12/05/2021 1:37 AM INDICATION: Reason: cough / Spl. Instructions: / History: COMPARISON: 11/28/2021 FINDINGS: The heart is not enlarged. Mediastinal and hilar contours are normal. Patchy opacities peripheral left lower lung. No pleural effusion or pneumothorax. IMPRESSION: Patchy opacities peripheral left lower lung, possibly atelectasis or developing consolidation. Electronically signed by: Kvng Trevino MD (12/05/2021 2:35 AM) [facility] DICTATED and SIGNED BY: KVNG TREVINO MD DATE: 12/05/21 [id number] 0 Course & Med Decision Making: Course & Med Decision Making Pertinent Labs and Imaging studies reviewed. (See chart for details) The patient is given intramuscular Toradol as well as p.o. Tessalon for cough. Chest x-ray is unremarkable. I see no indication why he should continue taking oral prednisone or Augmentin. I feel he may stop these medications, as he seems to only have side effects from the Augmentin without therapeutic benefit. I discussed home care instructions and supportive care instructions for treatment of his pain and medications to help with his cough symptoms. No current indication for further invasive exams, imaging or admission at this time. He manifests no evidence of distress or hypoxia. He denies dyspnea, denies pleuritic pain, denies chest pain. I recommend that he contact his PCP for follow-up. Strict return precautions are given. Dragon Disclaimer: Yaritza Disclaimer: This electronic medical record was generated, in whole or in part, using a voice recognition dictation system. Departure Departure Impression: Primary Impression: Cough Additional Impressions: Right flank pain History of COVID-19 Disposition: 01 HOME / SELF CARE / HOMELESS Condition: STABLE Referrals: NO PCP (PCP) Patient Instructions: Cough, Adult, [id number], Flank Pain Additional Instructions: Take the cough medicine as directed. Take [id number] Tylenol and ibuprofen for pain. You may continue taking the antibiotics you were prescribed. Return for chest pain, shortness of breath, coughing up blood, uncontrolled vomiting, dehydration, if you are acutely injured, if you develop any severe abdominal pain or for any other concerns. Please follow-up with your primary care physician. Scripts Benzonatate (BENZONATATE) 200 Mg Capsule 1 CAP PO PRN TID PRN for cough, #20 CAP 0 Refills Prov: YADI HARRISON DO 12/05/21 YADI HARRISON DO Dec 05, 2021 00:28
[2021-12-05] MEDS ORDERED: KETOROLAC 30 MG/ML VIAL. IM ONE (01:00)
[2021-12-05] MEDS ORDERED: BENZONATATE 100 MG CAPSULE. PO ONE (01:00)
[2021-12-05 02:08] LABS: BILIRUBIN,URINE NEGATIVE (NEG); CLARITY,URINE CLEAR; COLOR,URINE YELLOW; NITRITE,URINE NEGATIVE (NEG); PH,URINE 5.5 (<5.0-8.0); PROTEIN,URINE NEGATIVE (NEG-TRACE); UROBILINOGEN,URINE 0.2 mg/dL (0.2 mg/dL)
[2021-12-05 02:19] LABS: BACTERIA,URINE 0 /HPF (0-FEW); RBC,URINE RARE /HPF (0-2)
--- NOTE | 2021-12-05 02:38 | RAD ---
EXAM: AP View of the chest DATE: 12/05/2021 1:37 AM INDICATION: Reason: cough / Spl. Instructions: / History: COMPARISON: 11/28/2021 FINDINGS: The heart is not enlarged. Mediastinal and hilar contours are normal. Patchy opacities peripheral left lower lung. No pleural effusion or pneumothorax. IMPRESSION: Patchy opacities peripheral left lower lung, possibly atelectasis or developing consolidation. Electronically signed by: Kvng Trevino MD (12/05/2021 2:35 AM) [facility]
[2021-12-05] MEDS ORDERED: BENZ200C47 PO (03:30)
[2021-12-05 04:22] VITALS: BP 139/93
== END 2021-12-05 04:22 | disposition home or self-care (01) ==
LOC: ER 21:10
DX: R05.9 Cough, unspecified (principal); R10.9 Unspecified abdominal pain; R39.15 Urgency of urination
CPT/HCPCS: 71045; 81001; 96372; 99285; J1885

== ENCOUNTER 2022-03-08 18:53 | Emergency (ER) | payer SELFPAY ==
[~2022-03-08] VITALS: Ht 170.2 cm; Wt 107.0 kg
[2022-03-08 19:47] LABS: BASO # 0.1 x10^3/uL (0.0-0.2); BASO % 1 % (0-3); EOS # 0.5 x10^3/uL (0.0-0.7); EOS % 5 % (0-3); HEMATOCRIT 39.2 % (39.0-53.0); HEMOGLOBIN 13.8 g/dL (13.0-17.5); LYMPH # 2.6 x10^3/uL (1.0-4.8); LYMPH % 26 % (24-48); MEAN CORPUSCULAR HEMOGLOBIN 29 pg (25-35); MEAN CORPUSCULAR HGB CONC 35 g/dL (31-37); MEAN CORPUSCULAR VOLUME 84 fL (79-100); MONO # 0.8 x10^3/uL (0.0-1.1); MONO % 8 % (0-9); NEUT # 6.1 x10^3/uL (1.8-7.7); NEUT % 60 % (31-73); PLATELET COUNT 158 x10^3/uL (140-400); RED BLOOD COUNT 4.68 x10^6/uL (4.30-5.70); RED CELL DISTRIBUTION WIDTH 13.1 % (11.5-14.5); WHITE BLOOD COUNT 10.1 x10^3/uL (4.0-11.0)
[2022-03-08 19:53] LABS: CALCIUM 9.4 mg/dL (8.5-10.1); CREATININE 1.2 mg/dL (0.7-1.3); GFR 67.1
[2022-03-08 20:24] LABS: PLT ESTIMATE ADEQUATE (ADEQUATE)
--- NOTE | 2022-03-08 21:02 | RAD ---
Exam: Chest 2 views INDICATION: Chest pain TECHNIQUE: Frontal and lateral views the chest Comparisons: 12/05/2021 FINDINGS: The cardiomediastinal silhouette and pulmonary vessels are within normal limits. The lung and pleural spaces are clear. IMPRESSION: No acute cardiopulmonary process. Electronically signed by: Orlando Sinha MD (03/08/2022 8:59 PM) [facility]
--- NOTE | 2022-03-08 21:29 | PHYS DOC ---
Past Medical History Past Surgical History: No Surgical History Smoking Status: Never Smoker Alcohol Use: None General Adult EDM: Chief Complaint: CHEST PAIN HPI: HPI: Patient is a 41 year old male who presents with chest pain. Localized to left side. Some radiation down his arm. Has been going on for 4 days intermittently. History of hyperlipidemia but no history of hypertension or diabetes. States that he is compliant with his medications and sees a primary care doctor regularly. Denies any history of DVT or PE. The chest pain is not pleuritic in nature. No radiation to the back. No family or personal history of any chest aneurysms. No nausea or vomiting. No hemoptysis or wheezing or shortness of breath currently. The chest pain is currently gone. Review of Systems: Review of Systems: Constitutional: Denies fever or chills. [] Eyes: Denies change in visual acuity. [] HENT: Denies nasal congestion or sore throat. [] Respiratory: Denies cough or shortness of breath. [] Cardiovascular: Positive for chest pain GI: Denies abdominal pain, nausea, vomiting, bloody stools or diarrhea. [] : Denies dysuria. [] Musculoskeletal: Denies back pain or joint pain. [] Integument: Denies rash. [] Neurologic: Denies headache, focal weakness or sensory changes. [] Endocrine: Denies polyuria or polydipsia. [] Lymphatic: Denies swollen glands. [] Psychiatric: Denies depression or anxiety. [] Heart Score: C/O Chest Pain: Yes HEART Score for Chest Pain: HEART Score for Chest Pain Response (Comments) Value History Slighlty/Non-Suspicious 0 ECG Normal 0 Age < 45 0 Risk Factors 1 or 2 Risk Factors 1 Troponin < Normal Limit 0 Total 1 Risk Factors: Risk Factors: DM, Current or recent (<one month) smoker, HTN, HLP, family history of CAD, obesity. Risk Scores: Score 0 - 3: 2.5% MACE over next 6 weeks - Discharge Home Score 4 - 6: 20.3% MACE over next 6 weeks - Admit for Clinical Observation Score 7 - 10: 72.7% MACE over next 6 weeks - Early Invasive Strategies Allergies: Allergies: Allergies Coded Allergies Type Severity Reaction Last Updated Verified No Known Drug Allergies 11/08/21 No Physical Exam: PE: Constitutional: Well developed, well nourished, no acute distress, non-toxic appearance. [] HENT: Normocephalic, atraumatic, bilateral external ears normal, oropharynx moist, no oral exudates, nose normal. [] Eyes: PERRLA, EOMI, conjunctiva normal, no discharge. [] Neck: Normal range of motion, no tenderness, supple, no stridor. [] Cardiovascular:Heart rate regular rhythm, no murmur [] Lungs & Thorax: Bilateral breath sounds clear to auscultation [] Abdomen: Bowel sounds normal, soft, no tenderness, no masses, no pulsatile masses. [] Skin: Warm, dry, no erythema, no rash. [] Back: No tenderness, no CVA tenderness. [] Extremities: No tenderness, no cyanosis, no clubbing, ROM intact, no edema. [] Neurologic: Alert and oriented X 3, normal motor function, normal sensory function, no focal deficits noted. [] Psychologic: Affect normal, judgement normal, mood normal. [] Current Patient Data: Labs: Laboratory Tests Test 03/08/22 19:37 03/08/22 20:04 White Blood Count 10.1 x10^3/uL (4.0-11.0) Red Blood Count 4.68 x10^6/uL (4.30-5.70) Hemoglobin 13.8 g/dL (13.0-17.5) Hematocrit 39.2 % (39.0-53.0) Mean Corpuscular Volume 84 fL (79-100) Mean Corpuscular Hemoglobin 29 pg (25-35) Mean Corpuscular Hemoglobin Concent 35 g/dL (31-37) Red Cell Distribution Width 13.1 % (11.5-14.5) Platelet Count 158 x10^3/uL (140-400) Neutrophils (%) (Auto) 60 % (31-73) Lymphocytes (%) (Auto) 26 % (24-48) Monocytes (%) (Auto) 8 % (0-9) Eosinophils (%) (Auto) 5 % (0-3) H Basophils (%) (Auto) 1 % (0-3) Neutrophils # (Auto) 6.1 x10^3/uL (1.8-7.7) Lymphocytes # (Auto) 2.6 x10^3/uL (1.0-4.8) Monocytes # (Auto) 0.8 x10^3/uL (0.0-1.1) Eosinophils # (Auto) 0.5 x10^3/uL (0.0-0.7) Basophils # (Auto) 0.1 x10^3/uL (0.0-0.2) Platelet Estimate Adequate (ADEQUATE) Giant Platelets Occ Sodium Level 137 mmol/L (136-145) Potassium Level 4.0 mmol/L (3.5-5.1) Chloride Level 103 mmol/L (98-107) Carbon Dioxide Level 25 mmol/L (21-32) Anion Gap 9 (6-14) Blood Urea Nitrogen 15 mg/dL (8-26) Creatinine 1.2 mg/dL (0.7-1.3) Estimated GFR (Cockcroft-Gault) 67.1 Glucose Level 117 mg/dL (70-99) H Calcium Level 9.4 mg/dL (8.5-10.1) Troponin I High Sensitivity 20 ng/L (4-75) D-Dimer (Dori) 0.32 ug/mlFEU (0.00-0.50) Laboratory Tests 03/08/22 19:37 Laboratory Tests 03/08/22 19:37 Vital Signs: Vital Signs Date Time Temp Pulse Resp B/P (MAP) Pulse Ox O2 Delivery O2 Flow Rate FiO2 03/08/22 20:01 64 22 171/96 (121) 98 Room Air 03/08/22 19:10 98.2 98.2 EKG: EKG: [] Radiology/Procedures: Radiology/Procedures: Chest x-ray does not show any acute abnormalities [] Course & Med Decision Making: Course & Med Decision Making Pertinent Labs and Imaging studies reviewed. (See chart for details) Heart score is 1. D-dimer is unremarkable. EKG is unremarkable. Therefore given this he is safe for outpatient follow-up. Dragon Disclaimer: Dragon Disclaimer: This electronic medical record was generated, in whole or in part, using a voice recognition dictation system. Departure Departure Impression: Primary Impression: Atypical chest pain Disposition: HOME / SELF CARE / HOMELESS Condition: STABLE Referrals: NO PCP (PCP) Patient Instructions: Chest Pain (Nonspecific) Additional Instructions: Please see your primary care doctor within 48 hours NAHUN MCCALL MD Mar 08, 2022 21:29
[2022-03-08 23:19] VITALS: BP 162/93
== END 2022-03-08 23:20 | disposition home or self-care (01) ==
LOC: ER 18:53
DX: R07.89 Other chest pain (principal); E78.5 Hyperlipidemia, unspecified
CPT/HCPCS: 36415; 71046; 80048; 84484; 85025; 85379; 99285-25